=== PATIENT | male | born 1985 | race Two or more races ===

== ENCOUNTER 2024-12-21 11:10 | Emergency (ER) | payer MEDICAID, SELFPAY ==
[2024-12-21] VITALS (7 sets, daily range): BP systolic 112–145; BP diastolic 72–90; PULSE 98–118; RESP 17–20; TEMP 37.2–39.3; O2SAT 96–98; BMI 20.9
--- NOTE | 2024-12-21 12:01 | XR_ITS ---
Examination: PA lateral chest 2 views TECHNIQUE: Upright PA lateral chest 2 views Exam date and time: December 21, 2024 12:12 PM FINDINGS: Coughing difficulty breathing one month FINDINGS: Bilateral pneumonia, severe in the right upper lobe and left perihilar region Normal heart size The osseous structures are intact IMPRESSION: Significant bilateral pneumonia
[2024-12-21 12:15] LABS: Basophils % (Auto) 1 % (0-2.5); Eosinophils # (Auto) 0.1 Thou/mm3 (0.0-0.5); Eosinophils % (Auto) 1 % (0-10); Hematocrit 40.5 % (41.0-53.0); Immature Granulocytes % (Auto) 0 % (0-0); Immature Granulocytes Auto 0.01 Thou/mm3 (0.00-0.00); Lymphocytes # (Auto) 0.9 Thou/mm3 (1.0-4.8); Lymphocytes % (Auto) 12 % (10-50); Mean Corpuscular HGB Conc 34.6 g/dl (31.0-37.0); Mean Corpuscular Hemoglobin 27.8 pg (25.0-35.0); Mean Corpuscular Volume 80 fL (80-100); Monocytes # (Auto) 0.7 Thou/mm3 (0.0-0.8); Monocytes % (Auto) 10 % (0-12); Neutrophils # (Auto) 5.4 Thou/mm3 (1.8-7.7); Neutrophils % (Auto) 76 % (37-80); Nucleated Red Blood Cell % 0 /100 WBC (0); Platelet Count 315 Thou/mm3 (140-440); RDW Standard Deviation 33.9 fL (35.1-43.9); Red Blood Count 5.04 Miln/mm3 (4.50-5.90); White Blood Count 7.2 Thou/mm3 (3.8-10.6)
--- NOTE | 2024-12-21 12:21 | PD.EDRME ---
Rapid Medical Screening Exam RME Arrival date/time: 12/21/24 11:10 39-year-old male presents emergency department complaints of cough, congestion and shortness of breath ongoing x 1 month Chief Complaint: Flu Like Symptoms Time Seen by Provider: 12/21/24 11:14 Vital signs: Vital Signs Temperature 99.0 F 12/21/24 11:30 Pulse Rate 100 12/21/24 11:30 Respiratory Rate 18 12/21/24 11:30 Blood Pressure 117/82 12/21/24 11:30 Pulse Oximetry (%) 98 12/21/24 11:30 Oxygen Delivery Method Room Air 12/21/24 11:30
[2024-12-21 12:42] LABS: Quantiferon-TB* See Sep Rpt
[2024-12-21 12:46] LABS: Lactate (Lactic Acid) 1.4 mMol/L (0.4-2.0)
[2024-12-21 12:54] LABS: Alanine Aminotransferase 22 U/L (10-49); Albumin, Serum 3.4 gm/dL (3.5-5.0); Albumin/Globulin Ratio 0.8 (1.2-2.2); Alkaline Phosphatase 134 U/L (46-116); Anion Gap 7 (7-16); Aspartate Amino Transferase 29 U/L (0-34); BUN/Creatinine Ratio 13 Ratio (12-20); Bilirubin,Total 0.7 mg/dL (0.3-1.2); Blood Urea Nitrogen 8 mg/dL (9-23); Calcium (Corrected) 9.5 mg/dL (8.5-10.1); Carbon Dioxide 24.6 mMol/L (20.0-31.0); Chloride 101 mMol/L (98-107); Creatinine (Component) 0.6 mg/dL (0.6-1.3); Estimated Creatinine Clearance 118.9 mL/min (>60); Globulin 4.2 gm/dL (2.3-3.5); Osmolality,Calculated 285 (275-295); Sodium 133 mMol/L (136-145); Total Protein 7.6 gm/dL (5.7-8.2); eGFR > 60 See Note
[2024-12-21 12:59] LABS: Glucose 480 mg/dL (74-106)
[2024-12-21 13:42] LABS: Glucose Estimated Average 349 mg/dL (80-131); Hemoglobin A1C 13.8 % Hgb (4.8-6.0)
[2024-12-21 13:56] LABS: Cocci Serology, IgM Positive (Negative)
[2024-12-21 13:57] LABS: Cocid Sro, CF/ID (UCD) NO CHG* See Sep Rpt
--- NOTE | 2024-12-21 16:20 | PD.EDURI ---
Upper Respiratory Inf. RME/HPI General Chief Complaint: Flu Like Symptoms Stated Complaint: Cough X 1 month, sore throat X 15 days Time Seen by Provider: 12/21/24 11:14 Arrival date/time: 12/21/24 11:10 RME / HPI RME / HPI Narrative: 12/21/24 11:10 39-year-old male presents emergency department complaints of cough, congestion and shortness of breath ongoing x 1 month ------ Main ED Evaluation: Patient is a 39-year-old Urdu-speaking male with past medical history of type 2 diabetes who presents to the ED on 12/21/2024 due to cough with occasional blood tinged sputum, sore throat, and weight loss for the past 1 month. Patient also reports increasing fatigue over the last few days affecting his work activity. He reports associated pleuritic chest pain worsened upon inspiration and cough. Patient denies fevers but endorses occasional chills. He denies any skin rashes. He denies any abdominal pain, nausea, or vomiting. He works in the [employer]. Patient reports that he went to a clinic about 1 month ago when his symptoms started and was prescribed 3 medications including antibiotics which he completed at that time. He was told to come into the hospital if his symptoms had worsened and today he felt ill so came in. Patient does not have a regular doctor and only takes oral medications for his diabetes, which includes metformin and 1 other medication, that are from [place]. Complaint: cough and sore throat Onset (ago): month(s) Duration: constant Severity: moderate Description of mucous: bloody Able to tolerate fluids by mouth: Yes Context: other (work exposure) Associated symptoms: chills, cough, chest pain and shortness of breath Related Data Previous Rx's ?Medication ?Instructions ?Recorded fluconazole 200 mg tablet 400 mg (2 x 200 mg) PO QDAY [place] 12/21/24 Fever 1 month #60 tabs Allergies Allergy/AdvReac Type Severity Reaction Status Date / Time No Known Allergies Allergy Verified 12/21/24 12:29 Past Medical History Past Medical History Comments PMH COMMENT: Past Medical History: Type 2 diabetes diagnosed at age 8 Family History: Significant for diabetes in mother and sister Surgical History: No past surgeries Social History: Remote history of smoking casually as a teenager, denies current alcohol use, denies recreational drug use Current Medications: Metformin and one other oral diabetes medication from [place] (Source: Patient) Allergies: No known drug allergies ED Exam Narrative Physical exam: Physical Exam General: Awake and in no acute distress. Conversational and non-toxic appearing. HEENT: Normocephalic, atraumatic, mucous membranes moist. Heart: Regular rate and rhythm, no murmurs. Lungs: Clear to auscultation with no wheezing or crackles. Patient is coughing upon deep inspiration. Abdomen: Soft, nondistended, nontender, positive bowel sounds. ?No guarding or rebound tenderness. Neurologic: Alert and oriented x3, no gross neurological deficit, and patient able to move all 4 extremities. Extremities: No edema. Skin: No rash or ecchymoses. Course Quality Measures none Orders Category Date Time Status Bedside Blood Glucose NOW Care 12/21/24 16:41 Active EKG (ED ONLY) *Do not use* NOW Care 12/21/24 17:37 Active TB [Tuberculin Skin Test (PPD)] q48h Care 12/21/24 12:20 Active Diet Carbohydrate Consistent Low Diet 12/21/24 Dinner Active EKG (ED Only) Stat Exams 12/21/24 17:37 Ordered XR chest 2V Stat Exams 12/21/24 12:01 Completed A1C [Glycohemoglobin w (eAG)] Stat Lab 12/21/24 12:35 Completed Blood Culture (Lab) Stat Lab 12/21/24 12:35 Received CBC Stat Lab 12/21/24 12:06 Completed CMP [Comprehensive Metabolic Panel] Stat Lab 12/21/24 12:06 Completed Cocci Serology IgM with reflex to IgG [Cocci Serology, Lab 12/21/24 12:06 Completed Unk History] Stat Cocid Sro, CF/ID (UCD) NO CHG* Routine Lab 12/21/24 13:56 Received HIV (1&2) Antibody Rapid Stat Lab 12/21/24 12:06 Received Lactic Acid [Lactate (Lactic Acid)] Stat Lab 12/21/24 12:35 Completed Procalcitonin Stat Lab 12/21/24 12:35 Completed Quantiferon-TB* Stat Lab 12/21/24 12:35 Received Acetaminophen Tab [Tylenol ES Tab] Med 12/21/24 16:21 Discontinued 1,000 mg PO X1 ONE Fluconazole/Ns 400 mg Ivpb [Diflucan/Ns Ivpb] Med 12/21/24 17:21 Active 400 mg in 200 ml IV X1 Insulin Regular Med 12/21/24 16:40 Discontinued 5 unit SC X1 ONE Sodium Chloride 0.9% 1000 ml [Ns] 1,000 ml Med 12/21/24 16:21 Discontinued IV 999 mls/hr Tuberculin Ppd Inj [Tubersol Inj] Med 12/21/24 12:20 Discontinued 5 unit ID X1 ONE Late Tray Request Routine Oth 12/21/24 17:19 Active Vital Signs Vital signs: Vital Signs Temperature 99.0 F 12/21/24 11:30 Pulse Rate 100 12/21/24 11:30 Respiratory Rate 18 12/21/24 11:30 Blood Pressure 117/82 12/21/24 11:30 Pulse Oximetry (%) 98 12/21/24 11:30 Oxygen Delivery Method Room Air 12/21/24 11:30 Upper Respiratory Infection MDM Narrative MDM Narrative:: Patient presents with an acute to subacute chronicity of symptoms which include a cough that is occasionally productive with blood-tinged sputum, fatigue, weight loss, malaise, and pleuritic chest pain. Chest X-ray reveals an atypical pneumonia pattern with significant bilateral infiltrate, most dense in the right upper lobe. Cocci IgM test already returned positive here in the ED. The patient's vitals initially were BP 117/82, HR 100, RR 18, Temp 99.0, and O2 98% on room air. However about 4 hours later patient was noted to have a temperature of 102.7 and a sepsis alert was called at 16:14. Labs studies showed normal WBC at 7.2, normal lactic acid at 1.4, normal procalcitonin 0.20, which support diagnosis of pulmonary coccidioidomycosis. Superimposed bacterial pneumonia was considered however given the aforementioned results and the fact that patient already failed a course of outpatient antibiotics indicates that bacterial pneumonia is less likely. TB is not entirely ruled out as a diagnosis however patient does not have risk factors for TB and imaging on CXR does not appear to suggest a cavitary lesion. Other potential differentials for the patient's presentation include but are not limited to other atypical pneumonia, lobar pneumonia, pulmonary embolism, pulmonary malignancy, bronchitis/bronchiectasis, lung abscess, aspergillosis, systemic lupus erythematosis, arteriovenous malformation, vasculidities including Amos's, Churg-Jazmin, congestive heart failure. Patient was given 1L IV normal saline, 1g PO acetaminophen, 400 mg IV fluconazole, and 5 mg subQ insulin while in ED. 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 Patient was recommended to follow up at the [facility] for close follow up and management of his diabetes and Valley Fever. He was given a business card with phone number. HIV and quantiferon TB studies were sent and will need to be followed in the clinic, as well as the [facility] cocci send-out titers which have been sent. The patient was given return precautions including if he develops shortness of breath or worsening symptoms. Patient data External records reviewed:: None Clinical information provided by:: patient Social determinants that could affect healthcare access:: other (specify) Patient has the following chronic illnesses:: Type 2 diabetes How is presenting disease/condition affected by chronic disease/condition?: exacerbated by Evaluation data The following diagnostics were reviewed and interpreted by me:: lab results and radiology exam(s) Lab and/or radiology exams considered but not ordered:: Ordered Interpretation Summary: Chest X-Ray PA lateral chest 2 views FINDINGS: Bilateral pneumonia, severe in the right upper lobe and left perihilar region Normal heart size The osseous structures are intact IMPRESSION: Significant bilateral pneumonia Medications / Prescriptions Medications or Prescriptions considered but not ordered:: Given Medication administrations:: Medication Administration History Fluconazole (Diflucan/Ns Ivpb) 400 mg in 200 mls @ 100 mls/hr IV X1 ONE Stop: 12/21/24 19:20 Last Admin: 12/21/24 18:08 Dose: 100 mls/hr Documented By: RD Discontinued Medications Acetaminophen (Acetaminophen 500 Mg Tablet) 1,000 mg PO X1 ONE Stop: 12/21/24 16:22 Last Admin: 12/21/24 16:53 Dose: 1,000 mg Documented By: FRANCISCO J Sodium Chloride (Ns) 1,000 mls @ 999 mls/hr IV .Q1H1M ONE Stop: 12/21/24 17:21 Last Admin: 12/21/24 17:10 Dose: 999 mls/hr Documented By: FRANCISCO J Insulin Human Regular (Insulin Hum Regular 1 Unit/0.01 Ml (Per Unit)) 5 unit SC X1 ONE Stop: 12/21/24 16:41 Last Admin: 12/21/24 17:39 Dose: 5 unit Documented By: FRANCISCO J Co-signed By: LETICIA Tuberculin PPD (Tuberculin Ppd Inj 5 Unit/0.1 Ml Dose) 5 unit ID X1 ONE Stop: 12/21/24 12:21 Given Consultations Consultation(s) initiated? (list below): No Diagnosis Upper Respiratory Differential Diagnosis: upper respiratory infection, bronchitis and influenza Most likely diagnosis given after review of the tests above:: Coccidioidomycosis (Valley Fever), pulmonary tuberculosis (TB), bacterial pneumonia, atypical pneumonia, community acquired pneumonia, lobar pneumonia, pulmonary embolism, pulmonary malignancy, bronchitis/bronchiectasis, lung abscess, aspergillosis, systemic lupus erythematosis, arteriovenous malformation, vasculidities including Amos's, Churg-Jazmin, congestive heart failure Admission Indicated Admission indicated?: not indicated Explain why admission is indicated or not indicated:: Patient is on room air, able to take PO, able to ambulate, verbalizes understanding of close outpatient follow up plan. Admission Request Was there a request for admission?: No Disposition Plan Disposition Plan: Discharge Discharge Attestation Discharge Attestation: The patient and all family members were given an opportunity to ask questions and understood the discharge instructions. Discharge instructions specifically effects, indications for sooner follow up or return to the emergency department, and the expected course of current diagnosis. Patient condition: Stable Discharge Plan Plan Patient Disposition: HOME (Self Care) Disposition Comment: Stable for discharge home Patient condition on transfer: Stable Prescriptions/Referrals Prescriptions/Med Rec: New fluconazole 200 mg tablet 400 mg PO QDAY MDD 400 30 Days Qty: 60 2RF Referrals: No Primary/Family,Physician [Primary Care Provider] - In 1 week Problem List Clinical Impression: Acute pulmonary coccidioidomycosis, Right upper lobe pneumonia, Diabetes Patient/Caregiver Discharge Instructions Education Materials: Understanding Coccidioidomycosis Additional Instructions: You have been diagnosed with a disease called Valley Fever. This is a lung infection that is caused by a fungus that is commonly present in the [place] called coccidioides immitis. This fungus comes from the dirt and exposure to the bose and dirt can put a person at risk for this disease. Having medical conditions like diabetes can also put a person at risk for developing a more severe infection. It is important to make sure your diabetes is under good control to make sure the infection can be treated. We recommend that you see a regular doctor to help manage your diabetes and manage the Valley Fever. You can schedule an appointment with the [facility]. [address] [place] [address] Please call between the hours of 9 am - 5 pm to make an appointment. Please follow up with the doctor regarding results of a test which is sent to [facility] that shows how severe the Valley Fever is. Continue to take your regular medications for diabetes for now. Please start a new medication, fluconazole 400 mg once a day for the Valley Fever. Please seek help from the hospital if the medicine is too expensive for you. It is very important for you to continue this medication or the disease will worsen. ---- via Google Translate Se le lugo diagnosticado loco enfermedad llamada Fiebre Bailey. Se trata de loco infecci?n pulmonar causada por un hongo que se encuentra com?nmente en el [place] y se denomina coccidioides immitis. Nathan hongo proviene de la amy y la exposici?n a los sandoval y a la amy puede poner a loco persona en riesgo de contraer esta enfermedad. Tener afecciones m?dicas ezekiel diabetes tambi?n puede poner a loco persona en riesgo de desarrollar loco infecci?n m?s grave. Es importante asegurarse de que brush diabetes est? get controlada para asegurarse de que la infecci?n pueda tratarse. Le recomendamos que consulte a un m?dico de cabecera para que le ayude a controlar brush diabetes y la Fiebre Bailey. Puede programar loco chance en el [facility]. [address] [place] [address] Llame entre las 9:00 a. m. y las 5:00 p. m. para programar loco chance. Realice un seguimiento con el m?dico en relaci?n con los resultados de loco prueba que se env?a a [facility] y que muestra la gravedad de la Fiebre Bailey. Contin?e tomando raghu medicamentos habituales para la diabetes por ahora. Comience a chris un nuevo medicamento, fluconazol 400 mg loco vez al d?a para la fiebre bailey. Busque ayuda en el hospital si el medicamento es demasiado park para usted. Es muy importante que contin?e tomando nathan medicamento o la enfermedad empeorar?. Print Language: Urdu Stand Alone Forms: Patient Portal Info Letter MD Attestation Attestation I, Nico Garcia MD, have reviewed the history, exam, and assessment of the patient. I have evaluated the patient independently and agree with the plan of care documented by [ ]. All diagnostic studies were reviewed and discussed. I confirm the diagnosis as documented by the Resident. I was present during the Medical Decision Making for this patient. The patient's plan of care was created between myself and the Resident and consistent with our discussion of the patient's case. Patient is a gentleman who suggested acute cocci infection. Patient is not hypoxic he is not vomiting and seems likely good can to be treated as an outpatient per the be started on Diflucan as per the note the patient has arranged for a follow-up outpatient as he is not been compliant with his diabetes and needs more aggressive treatment for that and hopefully to minimize any risk for dissemination. Patient appeared understand the instructions and was juan follow-up in 2 days and knows return if getting worse.
[2024-12-21] MEDS: ACETAMINOPHEN 500 MG TABLET 1000 MG PO (16:53)
[2024-12-21] MEDS: SODIUM CHLORIDE 0.9% 1000 ML 1,000 ML 999 ML IV (17:10)
--- NOTE | 2024-12-21 17:37 | EKG_ITS ---
[facility] Test Date: 2024-12-21 Pat Name: KAN VALLEepartment: Room: - Gender: Male Physical Therapist Clinic Director: : [id number] Requested By: Brittney Leary Order Number: [id number] Reading MD: Brittney Leary Measurements Intervals [place] Rate: 96 P: 57 KS: 151 QRS: 46 QRSD: 89 T: 42 QT: 357 QTc: 451 Interpretive Statements SINUS RHYTHM No previous ECG available for comparison /store/S0/[id number].pdf
[2024-12-21] MEDS: INSULIN HUM REGULAR 1 UNIT/0.01 ML (PER UNIT) 5 UNIT SC (17:39)
[2024-12-21] MEDS: FLUCONAZOLE/NS 400 MG IVPB 400 MG/200 ML BAG 100 MG IV (18:08)
[2024-12-21 21:50] LABS: HIV (1&2) Antibody Rapid Non-Reactive
== END 2024-12-21 21:05 | disposition home or self-care (01) ==
PROVIDERS: Nurse Practitioner Primary Care; Student in an Organized Health Care Education/Training Program; Emergency Provider Emergency Medicine
DX: B38.0 Acute pulmonary coccidioidomycosis (principal); J18.9 Pneumonia, unspecified organism; E11.9 Type 2 diabetes mellitus without complications
CPT/HCPCS: 36415; 71046; 80053; 83036; 83605; 84145; 85025; 86480; 86635; 86703; 87040; 93005; 96361; 96365; 96366; 99284; J1450; J1815; J7030; A9270

== ENCOUNTER 2024-12-24 08:47 | Outpatient (AMB) | payer MEDICAID, SELFPAY ==
[2024-12-24 08:54] VITALS: BP 102/70; PULSE 114; RESP 16; TEMP 36.2; O2SAT 95
--- NOTE | 2024-12-24 08:54 | ACNOTE_ITS ---
Vital Signs 12/24/24 08:54 Weight 49.612 kg Weight Measurement Method Standing Scale BP 102/70 Blood Pressure Source Automatic Cuff Blood Pressure Location Left Upper Arm Position Sitting Respiration 16 Pulse 114 H Pulse Source Monitor Temp 97.2 F Temp Source Oral Pulse Oximetry (%) 95 Oxygen Delivery Method Room Air Allergies/Meds Allergies & Medications Allergies No Known Allergies Allergy (Verified 12/24/24 08:55) Medication Reconciliation fluconazole 200 mg tablet 400 mg (2 x 200 mg) PO QDAY Valley Fever 1 month #60 tabs 12/21/24 [Rx Confirmed 12/24/24] blood sugar diagnostic (Accu-Chek Guide test strips) #100 ea 12/24/24 [Rx] blood-glucose meter (Accu-Chek Guide Me Glucose Meter) #1 ea 12/24/24 [Rx] insulin glargine 100 unit/mL (3 mL) subcutaneous pen (Lantus Solostar U-100 Insulin) 10 unit (0.1 mL) subcut QPM #15 mL 12/24/24 [Rx] megestrol 800 mg/20 mL (20 mL) oral suspension 800 mg (20 mL) PO QDAY #20 mL 12/24/24 [Rx] metformin 1,000 mg tablet 1,000 mg PO BID #60 tabs 12/24/24 [Rx] MA Intake Visit Data Collection New Patient or Established: Established Patient (seen at [facility] within 3 years) Seen by Clinical Staff ONLY (RN/MA): No Pain Present Currently: No Pain scale:: 0 Pain Scale Used: Monge-Bauman/Numerical [employer] Worker Required: No PCP or OBGYN visit in last 3 months: Yes Date of Last PCP or OBGYN visit: 12/21/24 Hx Now: No Do You Feel Safe at Home: Yes Authorities Contacted: N/A Smoking Status Smoking Status: Never smoker Immunization / Flu Flu Vaccine in the Last 12 Months: No Flu Vaccine Exclusion Criteria: No Exclusion Criteria Past Medical History Past Medical History CARDIAC: Negative Congestive Heart Failure RESPIRATORY: Negative Chronic Obstructive Pulmonary Disease (COPD) GENITOURINARY: Negative Renal Disease ENDOCRINE: Negative Diabetes Mellitus Type 1 or Diabetes Mellitus Type 2 Social History SMOKING STATUS: Smoking status: Never smoker Patient Portal Questionaires PHQ-9 PHQ-2 Over the last 2 weeks, how often have you been bothered by any of the following problems? 1. Little interest or pleasure in doing things: not at all 2. Feeling down, depressed, or hopeless: not at all Total score: 0 Depression screen completed yes Social History Living Situation History Marital Status: Single Lives With: Family Tobacco History Smoking Status: Never smoker Domestic Abuse History Do You Feel Safe at Home: Yes Review of Systems Report any current symptoms Only answer those that you have currently: Past Medical History Past Medical History Have you ever been diagnosed with any of the following: Cardiology Problems Congestive Heart Failure: No Respiratory Problems Chronic Obstructive Pulmonary Disease (COPD): No Genital/Urinary Problems Renal Disease: No Endocrine Problems Diabetes Mellitus Type 1: No Diabetes Mellitus Type 2: No History of Present Illness HPI Narrative 39-year-old male with past medical history of uncontrolled diabetes who presented to the ED on 12/21/2024 due to cough with occasional blood tinged sputum, sore throat, and weight loss for the past 1 month. Patient was diagnosed with valley fever and was discharged with fluconazole and instructed to [facility]. 12/24/2024: Patient here today for follow-up for valley fever and uncontrolled diabetes, labs reviewed from the ED showing A1c of 13.8. Patient endorses not checking his sugars at home takes only metformin a 850 mg twice daily and glyburide 5 mg twice daily given to him from [place]. In addition patient also states having polyuria states going to the bathroom at least 10 times every night, likely in the setting of uncontrolled diabetes. Patient also complaining of loss of appetite and is requesting medications to help with appetite stimulation. He states improvement with cough however when he does cough still states having some mild pleuritic chest pain with inspiration and coughing. Review of Systems Review of Systems Systems Reviewed: All systems reviewed, normal except as documented Objective/Exam Narrative Physical exam: Physical Exam GENERAL: NAD, AAOx3 HEENT: Moist mucosa. Eyes open, symmetrical, & clear CARDIO: Heart RRR, no obvious murmurs PULM: +coughing, CTA B/L, no R/W/R GI: Abdomen soft, nondistended, no pain on palpation. BSx4 SKIN/MSK/EXT: No wounds/rashes/edema/amputations, no pain on palpation. Pedal pulses present B/L NEURO: AAOx3, no focal neuro deficits, able to move all 4 extremities Assessment & Plan Diagnosis / Problem List (1) Diabetes type 2, uncontrolled: Status: Acute Plan: Labs reviewed showed hemoglobin A1c of 13.8%, patient currently takes metformin 850 mg twice daily and glyburide 5 mg twice daily prescribed from [place]. As patient's hemoglobin A1c is very elevated despite current medication regimen megan l prescribe 10 units of Lantus as well as the glucose meter and strips to check fasting blood sugars, metformin dose adjusted to 1000 mg twice daily. Patient was also counseled on the importance of strict blood sugar control and lifestyle modifications. Complications of uncontrolled diabetes discussed with the patient and he states understanding. Patient was also given blood sugar log to look fasting blood sugars in order to make adjustments to insulin regimen. Will follow-up in 1 week (2) Anorexia: Status: Acute Plan: Patient states that decreased appetite with approximately 6 kg weight loss in 1 month. Will prescribe megestrol 800 mg daily (3) Acute pulmonary coccidioidomycosis: Status: Acute Plan: Patient was recently discharged from the ED with diagnosis of valley fever. Was discharged with fluconazole 400 mg daily we will continue current management at this time. HIV negative, QuantiFERON found negative as part of ED workup. will reorder QuantiFERON and will evaluate in 1 week. Office Procedures [facility] Level of Care Nursing/Assessment Patient Status: Established Patient Nursing Assessment/Reassessment: BP Monitoring, Medication Reconciliation, Update PMH in EMR and Vital Signs Coordination of Care: Complex Care and Chronic Disease 1-5, Consent,records obtained, informed consent, Education Simp Pt/Fam and Staff clarify orders Established Patient Charge Established Patient Point Assignment: 100 Established Patient Point Charge: EP Level 3 (80-115)
== END 2024-12-24 10:25 | disposition home or self-care (01) ==
LOC: HODAHC 08:47
PROVIDERS: Supervising Provider Internal Medicine; Visit Provider Student in an Organized Health Care Education/Training Program
DX: R63.0 Anorexia (principal); E11.9 Type 2 diabetes mellitus without complications; Z79.84 Long term (current) use of oral hypoglycemic drugs; Z79.4 Long term (current) use of insulin; B38.0 Acute pulmonary coccidioidomycosis
CPT/HCPCS: 99213; G0463

== ENCOUNTER 2024-12-31 09:55 | Outpatient (AMB) | payer MEDICAID, SELFPAY ==
[2024-12-31 09:54] VITALS: BP 107/75; PULSE 96; RESP 16; TEMP 35.6; O2SAT 96
--- NOTE | 2024-12-31 09:54 | ACNOTE_ITS ---
Vital Signs 12/31/24 09:54 Height 58 m Height Method Stated Weight 48.704 kg Weight Measurement Method Standing Scale BMI 0.0 BP 107/75 Blood Pressure Source Automatic Cuff Blood Pressure Location Left Upper Arm Position Sitting Respiration 16 Pulse 96 Pulse Source Monitor Temp 96.0 F L Temp Source Temporal Artery Scan Pulse Oximetry (%) 96 Oxygen Delivery Method Room Air Allergies/Meds Allergies & Medications Allergies No Known Allergies Allergy (Verified 12/31/24 10:57) Medication Reconciliation fluconazole 200 mg tablet 400 mg (2 x 200 mg) PO QDAY Valley Fever 1 month #60 tabs 12/21/24 [Rx Confirmed 12/31/24] blood sugar diagnostic (Accu-Chek Guide test strips) #100 ea 12/24/24 [Rx Confirmed 12/31/24] blood-glucose meter (Accu-Chek Guide Me Glucose Meter) #1 ea 12/24/24 [Rx Confirmed 12/31/24] insulin glargine 100 unit/mL (3 mL) subcutaneous pen (Lantus Solostar U-100 Insulin) 10 unit (0.1 mL) subcut QPM #15 mL 12/24/24 [Rx Confirmed 12/31/24] megestrol 800 mg/20 mL (20 mL) oral suspension 800 mg (20 mL) PO QDAY #20 mL 12/24/24 [Rx Confirmed 12/31/24] metformin 1,000 mg tablet 1,000 mg PO BID #60 tabs 12/24/24 [Rx Confirmed 12/31/24] dextromethorphan polistirex 30 mg/5 mL oral susp ext.release 12hr (Robitussin ER) 10 ml PO Q12H PRN cough #89 mL 12/31/24 [Rx] MA Intake Visit Data Collection New Patient or Established: Established Patient (seen at [facility] within 3 years) Seen by Clinical Staff ONLY (RN/MA): No Pain Present Currently: No Pain scale:: 0 Pain Scale Used: Kia/Numerical Psychiatric Assistant Required: No PCP or OBGYN visit in last 3 months: Yes Hx Now: No Do You Feel Safe at Home: Yes Authorities Contacted: N/A Smoking Status Smoking Status: Never smoker Immunization / Flu Flu Vaccine in the Last 12 Months: No Flu Vaccine Exclusion Criteria: No Exclusion Criteria Past Medical History Past Medical History CARDIAC: Negative Congestive Heart Failure RESPIRATORY: Negative Chronic Obstructive Pulmonary Disease (COPD) GENITOURINARY: Negative Renal Disease ENDOCRINE: Negative Diabetes Mellitus Type 1 or Diabetes Mellitus Type 2 Social History SMOKING STATUS: Smoking status: Never smoker Patient Portal Questionaires PHQ-9 PHQ-2 Over the last 2 weeks, how often have you been bothered by any of the following problems? 1. Little interest or pleasure in doing things: not at all Social History Living Situation History Lives With: Family Tobacco History Smoking Status: Never smoker Domestic Abuse History Do You Feel Safe at Home: Yes Review of Systems Report any current symptoms Only answer those that you have currently: Past Medical History Past Medical History Have you ever been diagnosed with any of the following: Cardiology Problems Congestive Heart Failure: No Respiratory Problems Chronic Obstructive Pulmonary Disease (COPD): No Genital/Urinary Problems Renal Disease: No Endocrine Problems Diabetes Mellitus Type 1: No Diabetes Mellitus Type 2: No History of Present Illness HPI Narrative 39-year-old male with past medical history of uncontrolled diabetes who presented to the ED on 12/21/2024 due to cough with occasional blood tinged sputum, sore throat, and weight loss for the past 1 month. Patient was diagnosed with valley fever and was discharged with fluconazole and instructed to follow-up in the [facility]. 12/24/2024: Patient here today for follow-up for valley fever and uncontrolled diabetes, labs reviewed from the ED showing A1c of 13.8. Patient endorses not checking his sugars at home takes only metformin a 850 mg twice daily and glyburide 5 mg twice daily given to him from [place]. In addition patient also states having polyuria states going to the bathroom at least 10 times every night, likely in the setting of uncontrolled diabetes. Patient also complaining of loss of appetite and is requesting medications to help with appetite stimulation. He states improvement with cough however when he does cough still states having some mild pleuritic chest pain with inspiration and coughing. 12/31/24: Patient seen today for follow up visit. Patient states improvement in symptoms, however continues to have coughing spells that bother him. Coughing spells get so bad he sometimes spits some minimal blood. Patient adviced to continue taking his fluconazole for valley fever. Added some robitussin for cough. Blood sugar log was reviewed found with avg fasting BS around 270-300 currently on 10 units of insulin. Increased dose to 15 units and patient was adviced to titrate by 1 units until Fasting sugars are 150-170 range. Labs were ordered last week however still not in the [facility] system. will follow up in 1 week. L Objective/Exam Narrative Physical exam: Physical Exam GENERAL: NAD, AAOx3 HEENT: Moist mucosa. Eyes open, symmetrical, & clear CARDIO: Heart RRR, no obvious murmurs PULM: No noted coughing/dyspnea CTA B/L, no R/W/R GI: Abdomen soft, nondistended, no pain on palpation. BSx4 SKIN/MSK/EXT: No wounds/rashes/edema/amputations, no pain on palpation. Pedal pulses present B/L NEURO: AAOx3, no focal neuro deficits, able to move all 4 extremities Assessment & Plan Diagnosis / Problem List (1) Coccidioidomycosis: Status: Acute Plan: Continue fluconazole (2) Diabetes type 2, uncontrolled: Status: Acute Plan: curently on 10 units of glargine, sugars have been ranging between 270-300. Increased dose to 15 units and to titrate up by 1 unit until goal of 150-170 fasting Additional Assessment Internal Medicine Attending Note: Case discussed with and agree with note and management plan of Resident Physician as per Resident's Note above. Issues of concern for present visit are as follows: Follow-up visit. Some improvement in symptoms. Continued coughing spells, occasional tinged with hemoptysis. Diabetes self-care reviewed including diet, exercise, footcare, eye care. Blood sugars continue to remain elevated. We will increase his dose of Lantus and titrate the dose upwards. We will potentially need to add mealtime insulin as well. Follow-up in 1 week. Lab results from test ordered at last visit not yet available, we will continue to check for these. Michael Marquez MD Physician Billing Established Patient Established Patient: E/M Level 3-CPT 70396 Office Procedures [facility] Level of Care Nursing/Assessment Patient Status: Established Patient Nursing Assessment/Reassessment: Medication Reconciliation, Update PMH in EMR and Vital Signs Coordination of Care: Complex Care and Chronic Disease 1-5, Consent,records obtained, informed consent, Education Simp Pt/Fam, Results/Orders obtained and Staff clarify orders Established Patient Charge Established Patient Point Assignment: 90 Established Patient Point Charge: Level 3 (80-115)
== END 2024-12-31 11:03 | disposition home or self-care (01) ==
LOC: HODAHC 09:55
PROVIDERS: PCP Student in an Organized Health Care Education/Training Program; Referring Provider Student in an Organized Health Care Education/Training Program; Supervising Provider Internal Medicine; Visit Provider Student in an Organized Health Care Education/Training Program
DX: B38.0 Acute pulmonary coccidioidomycosis (principal); E11.9 Type 2 diabetes mellitus without complications; Z79.4 Long term (current) use of insulin
CPT/HCPCS: 99213; G0463

== ENCOUNTER 2025-04-12 13:12 | Outpatient (AMB) | payer MEDICAID, SELFPAY ==
--- NOTE | 2025-04-12 14:29 | ACNOTE_ITS ---
Allergies/Meds Allergies & Medications Allergies No Known Allergies Allergy (Verified 04/21/25 08:35) Medication Reconciliation blood-glucose meter (Accu-Chek Guide Me Glucose Meter) #1 ea 12/24/24 [Rx Confirmed 12/31/24] dextromethorphan polistirex 30 mg/5 mL oral susp ext.release 12hr (Robitussin ER) 10 ml PO Q12H PRN cough #89 mL 12/31/24 [Rx] isoniazid 300 mg tablet 300 mg PO QDAY 6 months #180 tabs 01/11/25 [Rx] pyridoxine (vitamin B6) 50 mg tablet 50 mg PO QDAY 6 months #180 tabs 01/11/25 [Rx] rifampin 300 mg capsule 300 mg PO QDAY 6 months #180 caps 01/11/25 [Rx] fluconazole 200 mg tablet 400 mg (2 x 200 mg) PO QDAY Valley Fever 1 month #60 tabs 03/17/25 [Rx] blood sugar diagnostic (Accu-Chek Guide test strips) #100 ea 04/12/25 [Rx Confirmed 04/21/25] blood-glucose sensor (PostedInyle Lisa 3 Plus Sensor device) #1 ea 04/12/25 [Rx Confirmed 04/21/25] insulin glargine 100 unit/mL (3 mL) subcutaneous pen (Lantus Solostar U-100 Insulin) 25 unit (0.25 mL) subcut QPM #15 mL 04/12/25 [Rx Confirmed 04/21/25] lancets 30 gauge #100 ea 04/12/25 [Rx Confirmed 04/21/25] megestrol 800 mg/20 mL (20 mL) oral suspension 800 mg (20 mL) PO QDAY #20 mL 04/12/25 [Rx Confirmed 04/21/25] metformin 1,000 mg tablet 1,000 mg PO BID #60 tabs 04/12/25 [Rx Confirmed 04/21/25] pen needle, diabetic 32 gauge x 5/32 (1st Tier Unifine Pentips Plus) #100 ea 04/12/25 [Rx Confirmed 04/21/25] MA Intake Visit Data Collection New Patient or Established: Established Patient (seen at [facility] within 3 years) Seen by Clinical Staff ONLY (RN/SORAYA): No Pain Present Currently: No Pain scale:: 0 Pain Scale Used: Monge-Bauman/Numerical Cushion Builder Required: No PCP or OBGYN visit in last 3 months: Yes Hx Now: No Do You Feel Safe at Home: Yes Authorities Contacted: N/A Smoking Status Smoking Status: Never smoker Immunization / Flu Flu Vaccine in the Last 12 Months: Yes Flu Vaccine Exclusion Criteria: Already Received Past Medical History Past Medical History CARDIAC: Negative Congestive Heart Failure RESPIRATORY: Negative Chronic Obstructive Pulmonary Disease (COPD) GENITOURINARY: Negative Renal Disease ENDOCRINE: Negative Diabetes Mellitus Type 1 or Diabetes Mellitus Type 2 Social History SMOKING STATUS: Smoking status: Never smoker Patient Portal Questionaires PHQ-9 PHQ-2 Over the last 2 weeks, how often have you been bothered by any of the following problems? 1. Little interest or pleasure in doing things: not at all Social History Living Situation History Lives With: Family Tobacco History Smoking Status: Never smoker Domestic Abuse History Do You Feel Safe at Home: Yes Review of Systems Report any current symptoms Only answer those that you have currently: Past Medical History Past Medical History Have you ever been diagnosed with any of the following: Cardiology Problems Congestive Heart Failure: No Respiratory Problems Chronic Obstructive Pulmonary Disease (COPD): No Genital/Urinary Problems Renal Disease: No Endocrine Problems Diabetes Mellitus Type 1: No Diabetes Mellitus Type 2: No History of Present Illness HPI Narrative 39-year-old male with past medical history of uncontrolled diabetes who presented to the ED on 12/21/2024 due to cough with occasional blood tinged sputum, sore throat, and weight loss for the past 1 month. Patient was diagnosed with valley fever and was discharged with fluconazole and instructed to follow-up in the [facility]. 12/24/2024: Patient here today for follow-up for valley fever and uncontrolled diabetes, labs reviewed from the ED showing A1c of 13.8. Patient endorses not checking his sugars at home takes only metformin a 850 mg twice daily and glyburide 5 mg twice daily given to him from [place]. In addition patient also states having polyuria states going to the bathroom at least 10 times every night, likely in the setting of uncontrolled diabetes. Patient also complaining of loss of appetite and is requesting medications to help with appetite stimulation. He states improvement with cough however when he does cough still states having some mild pleuritic chest pain with inspiration and coughing. 12/31/24: Patient seen today for follow up visit. Patient states improvement in symptoms, however continues to have coughing spells that bother him. Coughing spells get so bad he sometimes spits some minimal blood. Patient adviced to continue taking his fluconazole for valley fever. Added some robitussin for cough. Blood sugar log was reviewed found with avg fasting BS around 270-300 currently on 10 units of insulin. Increased dose to 15 units and patient was adviced to titrate by 1 units until Fasting sugars are 150-170 range. Labs were ordered last week however still not in the [facility] system. will follow up in 1 week. L 04/12/2025 patient came for follow-up visit. He reported that his symptoms have been improving when he does gets mild hemoptysis when he has a bad cough. 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 He was advised to continue his fluconazole for valley fever. He reported that he is only able to check his blood sugars during the morning time which was around 300-400 mg/dL on 18 units insulin. He denied any symptoms of chest pain, shortness of breath, dysuria or any other symptom. He was advised to increase his insulin 25 units and add up 2 units every day until his blood sugars are below 200 mg/dL in the morning with goal 150?170. He was additionally given prescription refill for Lantus, lancets, insulin needles and freestyle lisa 3 was sent as patient is currently using insulin for better management of blood sugar. He was also given megestrol prescription for appetite stimulation. CMP was ordered to evaluate for kidney functions as patient is currently taking metformin and urine microalbumin with creatinine was ordered to evaluate for proteinuria. Follow-up in a month. Review of Systems Review of Systems Systems Reviewed: All systems reviewed, normal except as documented Objective/Exam Narrative Physical exam: GENERAL APPEARANCE: AxOx4, lean appearing male in no acute distress. HEENT: NC, AT. MMM. EOMI, clear conjunctiva, oropharynx clear. NECK: Supple without lymphadenopathy. No stiffness or restricted ROM. HEART: Regular rate and regular rhythm, normal S1/S2, no m/r/g LUNGS: CTAB, moving air well. No crackles or wheezes are heard. ABDOMEN: Soft, nontender, nondistended with good bowel sounds heard. BACK: No CVAT, no obvious deformity. EXTREMITIES: Without cyanosis, clubbing or edema. NEUROLOGICAL: Grossly nonfocal. Alert and oriented, moving all 4 extremities. CN not formally tested but appear grossly intact. Observed to ambulate with normal gait. Skin: Warm and dry without any rash. Psych: Appropriate mood and affect Assessment & Plan Diagnosis / Problem List (1) Diabetes type 2, uncontrolled: Status: Acute Assessment & Plan: ? Patient is currently using insulin 18 units and metformin 1 g twice daily. He reported to have his blood sugars around 300-400 in the morning. Plan: ? Patient was advised to increase in insulin units 25 units at night and incre ase to 2 units every day until his blood sugars are below 200 mg/dL. Goal of morning/fasting blood sugar around 150-170 mg/dL. ? Prescription refill was given for Lantus, lancets, test strips ?Freestyle lisa 3 was ordered as patient is currently using insulin therapy besides metformin ?CMP and urine microalbumin with creatinine was ordered to evaluate for proteinuria and kidney functions ?Follow-up in a month (2) Coccidioidomycosis: Status: Acute Assessment & Plan: ? Patient is currently taking fluconazole for valley fever Plan: ? Recommended to continue taking fluconazole ? Recommended to take cough syrup as needed as patient continues to have mild hemoptysis Plan of care discussed with attending physician, Dr.Watanakunakorn Dr. Teo MD, PGY 2 Orders: Orders Comprehensive Metabolic Panel 04/12/25 Microalbumin, Ur Rnd w Creat 04/12/25 Office Procedures [facility] Level of Care Nursing/Assessment Patient Status: Established Patient Nursing Assessment/Reassessment: Medication Reconciliation, Update PMH in EMR and Vital Signs Coordination of Care: Complex Care and Chronic Disease 1-5, Consent,records obtained, informed consent, Education Simp Pt/Fam and Staff clarify orders Established Patient Charge Established Patient Point Assignment: 85 Established Patient Point Charge: EP Level 3 (80-115)
== END 2025-04-12 14:39 | disposition home or self-care (01) ==
LOC: HODAHC 13:12
PROVIDERS: PCP Student in an Organized Health Care Education/Training Program; Referring Provider Student in an Organized Health Care Education/Training Program; Supervising Provider Internal Medicine; Visit Provider Student in an Organized Health Care Education/Training Program
DX: B38.0 Acute pulmonary coccidioidomycosis (principal); E11.9 Type 2 diabetes mellitus without complications; Z79.4 Long term (current) use of insulin
CPT/HCPCS: 99213; G0463

== ENCOUNTER 2025-05-13 15:14 | Outpatient (AMB) | payer MEDICAID, SELFPAY ==
[2025-05-13 15:29] VITALS: BP 99/65; PULSE 90; RESP 17; TEMP 36.8; O2SAT 95
--- NOTE | 2025-05-13 15:29 | PD.RESCLINIC ---
Vital Signs 05/13/25 15:29 Height 58 m Height Method Measured Weight 51.369 kg Weight Measurement Method Standing Scale BMI 0.0 BP 99/65 Blood Pressure Source Automatic Cuff Blood Pressure Location Right Upper Arm Position Sitting Respiration 17 Pulse 90 Pulse Source Monitor Temp 98.3 F Temp Source Temporal Artery Scan Pulse Oximetry (%) 95 Oxygen Delivery Method Room Air Allergies/Meds Allergies & Medications Allergies No Known Allergies Allergy (Verified 05/13/25 15:30) Medication Reconciliation blood-glucose meter (Accu-Chek Guide Me Glucose Meter) #1 ea 12/24/24 [Rx Confirmed 05/13/25] dextromethorphan polistirex 30 mg/5 mL oral susp ext.release 12hr (Robitussin ER) 10 ml PO Q12H PRN cough #89 mL 12/31/24 [Rx Confirmed 05/13/25] isoniazid 300 mg tablet 300 mg PO QDAY 6 months #180 tabs 01/11/25 [Rx Confirmed 05/13/25] pyridoxine (vitamin B6) 50 mg tablet 50 mg PO QDAY 6 months #180 tabs 01/11/25 [Rx Confirmed 05/13/25] rifampin 300 mg capsule 300 mg PO QDAY 6 months #180 caps 01/11/25 [Rx Confirmed 05/13/25] fluconazole 200 mg tablet 400 mg (2 x 200 mg) PO QDAY Valley Fever 1 month #60 tabs 03/17/25 [Rx Confirmed 05/13/25] blood sugar diagnostic (Accu-Chek Guide test strips) #100 ea 04/12/25 [Rx Confirmed 05/13/25] blood-glucose sensor (FreeStyle Lisa 3 Plus Sensor device) #1 ea 04/12/25 [Rx Confirmed 05/13/25] lancets 30 gauge #100 ea 04/12/25 [Rx Confirmed 05/13/25] megestrol 800 mg/20 mL (20 mL) oral suspension 800 mg (20 mL) PO QDAY #20 mL 04/12/25 [Rx Confirmed 05/13/25] metformin 1,000 mg tablet 1,000 mg PO BID #60 tabs 04/12/25 [Rx Confirmed 05/13/25] pen needle, diabetic 32 gauge x /32 (1st Tier Unifine Pentips Plus) #100 ea 06/10/25 [Rx Confirmed 05/13/25] insulin glargine 100 unit/mL (3 mL) subcutaneous pen (Lantus Solostar U-100 Insulin) 40 unit (0.4 mL) subcut QPM Diabetes Mellitus #15 mL 05/13/25 [Rx] semaglutide 3 mg tablet (Rybelsus) 3 mg PO QDAY 1 month #30 tabs 05/13/25 [Rx] MA Intake Visit Data Collection New Patient or Established: Established Patient (seen at [facility] within 3 years) Seen by Clinical Staff ONLY (RN/MA): No Reason for Visit:: 1 MONTH FOLLOW UP Pain Present Currently: No Pain scale:: 0 Pain Scale Used: Monge-Bauman/Numerical PCP or OBGYN visit in last 3 months: Yes Smoking Status Smoking Status: Never smoker Immunization / Flu Flu Vaccine in the Last 12 Months: No Flu Vaccine Exclusion Criteria: Refused by Patient Past Medical History Past Medical History CARDIAC: Negative Congestive Heart Failure RESPIRATORY: Negative Chronic Obstructive Pulmonary Disease (COPD) GENITOURINARY: Negative Renal Disease ENDOCRINE: Negative Diabetes Mellitus Type 1 or Diabetes Mellitus Type 2 Social History SMOKING STATUS: Smoking status: Never smoker Patient Portal Questionaires PHQ-9 PHQ-2 Over the last 2 weeks, how often have you been bothered by any of the following problems? 1. Little interest or pleasure in doing things: not at all Social History Living Situation History Lives With: Family Tobacco History Smoking Status: Never smoker Review of Systems Report any current symptoms Only answer those that you have currently: Past Medical History Past Medical History Have you ever been diagnosed with any of the following: Cardiology Problems Congestive Heart Failure: No Respiratory Problems Chronic Obstructive Pulmonary Disease (COPD): No Genital/Urinary Problems Renal Disease: No Endocrine Problems Diabetes Mellitus Type 1: No Diabetes Mellitus Type 2: No History of Present Illness HPI Narrative 39-year-old male with past medical history of Diabetes Mellitus Type II, Insulin Dependent who presented to the ED on 12/21/2024 due to cough with occasional blood tinged sputum, sore throat, and weight loss for the past 1 month. Patient was diagnosed with valley fever and was discharged with fluconazole and instructed to follow-up in the [facility]. 12/24/2024: Patient here today for follow-up for valley fever and uncontrolled diabetes, labs reviewed from the ED showing A1c of 13.8. Patient endorses not checking his sugars at home takes only metformin a 850 mg twice daily and glyburide 5 mg twice daily given to him from [place]. In addition patient also states having polyuria states going to the bathroom at least 10 times every night, likely in the setting of uncontrolled diabetes. Patient also complaining of loss of appetite and is requesting medications to help with appetite stimulation. He states improvement with cough however when he does cough still states having some mild pleuritic chest pain with inspiration and coughing. 12/31/24: Patient seen today for follow up visit. Patient states improvement in symptoms, however continues to have coughing spells that bother him. Coughing spells get so bad he sometimes spits some minimal blood. Patient adviced to continue taking his fluconazole for valley fever. Added some robitussin for cough. Blood sugar log was reviewed found with avg fasting BS around 270-300 currently on 10 units of insulin. Increased dose to 15 units and patient was adviced to titrate by 1 units until Fasting sugars are 150-170 range. Labs were ordered last week however [facility]. will follow up in 1 week. L 04/12/2025 patient came for follow-up visit. He reported that his symptoms have been improving when he does gets mild hemoptysis when he has a bad cough. 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 He was advised to continue his fluconazole for valley fever. He reported that he is only able to check his blood sugars during the morning time which was around 300-400 mg/dL on 18 units insulin. He denied any symptoms of chest pain, shortness of breath, dysuria or any other symptom. He was advised to increase his insulin 25 units and add up 2 units every day until his blood sugars are below 200 mg/dL in the morning with goal 150?170. He was additionally given prescription refill for Lantus, lancets, insulin needles and freestyle lisa 3 was sent as patient is currently using insulin for better management of blood sugar. He was also given megestrol prescription for appetite stimulation. CMP was ordered to evaluate for kidney functions as patient is currently taking metformin and urine microalbumin with creatinine was ordered to evaluate for proteinuria. Follow-up in a month. 05/13/2025: Patient continues to take all his medication as prescribed. Patient is currently following [facility]. Patient stated he was recently diagnosised with Tuberculosis and started of Pyridoxine 50 gm once daily and Rifampin 300 mg once daily, no RIPE treatment noted. No sputum culture on file. Patient likely being treated for latent TB given Rifampin but Pyridoxine (B6) also noted which would be in combination to Isoniazid. In addition to likely latent TB, [facility] sent positive Nocardia Culture results. Treatment for Nocardia would be Trimethoprim-Sulfamethoxazole. Holding off on treatment, need to follow up with [facility] recommendations to confirm latent TB and confirm Nocardia diagnosis. Although rare there can be cross-reactivity with positive Quantiferon TB Gold positive results. Although tested negative for HIV in Dec 2024, it is recommended that patient repeat HIV results. Continue Fluconazole for an additional month to complete 6 month course. Three diagnosis of Cocci, TB, and Nocardia would be unusual and needs further follow up with [facility]. May require ID specialist. Patient's diabetes continues to be elevated repeat A1c from 05/05/2025 noted A1c >15%. Patient brought in recorded fasting glucose at home, noted mid 300s to 400s. Currently taking 32 units of insulin glargine. 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 Increase insulin to 40 units Glargine HS. Rybelsus added, starting at 3 mg qday. Follow up with A1c. 1 month follow up. Follow up with [facility] on Friday. Review of Systems Review of Systems Narrative Review of Systems: General appearance: NO weight change, NO fatigue, NO weakness, NO fever, NO chills, NO night sweats, No cough Skin: NO rash, NO itching, NO sores, NO moles HEENT: NO Trauma, NO nausea, NO vomiting, NO visual changes, NO blurry vision, NO double vision, NO tinnitus, NO vertigo, NO ear discharge, NO rhinorrhea, NO stuffiness, NO sneezing, NO allergy, NO epistaxis. NO Hoarseness, NO sore throat, NO swollen neck. Cardiac: NO Palpitations, NO dyspnea on exertion, NO orthopnea, NO paroxysmal nocturnal dyspnea, NO edema Respiratory: NO Shortness of Breath, NO Wheezing, NO Cough, NO Sputum, NO hemoptysis GI:NO appetite, NO nausea, NO vomiting, NO dysphagia, NO changes in bowel frequency, NO stool color, NO diarrhea, NO constipation, NO hemetemesis, NO hemorrhoids, NO melena, NO hematechezia, NO abdominal pain, NO jaundice Renal: NO frequency, NO hesitancy, NO urgency, NO hematuria, NO nocturia, NO incontinence MSK: NO muscle weakness, NO gout, NO arthritis, NO muscle stiffness Neuro: NO headaches, NO tremors, NO weakness, NO paralysis, NO seizures, NO loss of consciousness, NO numbness. Hem: NO anemia, NO easy bruising/bleeding, NO petechiae, NO purpura Endo: NO heat/cold intolerance, NO excessive sweating, NO polyuria, NO polydipsia, NO polyphagia, NO thyroid problems, NO diabetes Pysch: NO mood, NO anxiety, NO depression Objective/Exam Narrative Physical exam: Vitals: 99/65, HR 90, RR 17 General Appearance: Alert and Orientated x3, thin male who is sitting on exam room in no acute distress. Thorax/Lungs: Symmetrical with good expansion. Chest and back non-tender. Lungs resonant to percussion. Breath sounds vesicular without crackles, wheezes, or rhonchi Cardiovascular/Peripheral Vascular: No jugular venous distention noted. S1 and S2 heart sounds regular, no murmurs or extra heart sounds auscultated. No peripheral edema noted. Abdomen: Bowel sounds are active. No tenderness to deep or light palpation. Assessment & Plan Diagnosis / Problem List (1) Tuberculosis: Status: Acute Assessment & Plan: Concerning diagnosis of Tuberculosis. This is likely Latent TB as patient was not started on RIPE treatment. Patient only has positive Quantiferon Gold (12/28/2024) results. No sputum culture on file. Plan: -Continue Rifampin 50 units and Pyridoxine (B6), ?unclear if Isoniazid onboard -Contact [facility] office (2) Coccidioidomycosis: Status: Acute Assessment & Plan: Continue Fluconazole Treatment for valley fever. Patient is reaching 6 month cut off and will need to stop Fluconazole next month. Plan: -Continue Fluconazole 400 mg once daily, month 5 (3) Nocardial pneumonia: Status: Acute Assessment & Plan: Positive cultures for Nocardia from [facility]. Given diagnosis of cocci and new diagnosis of TB, will hold off starting Trimethoprim-Sulfamethoxazole. Reach out to [facility] public health to determine cross reactivity, as three pulmonary disease would be concerning for HIV or immuno-deficiency. Plan: -HOLD off TRimethoprim-Sulfamethoxazole -Follow up with [facility] given suspicious results (4) Anorexia: Status: Acute Assessment & Plan: Patient has had recent weight loss greater than 20 lbs. Patient has been diagnosed with Cocci/Valley Fever, recently started on TB treatment, and possible positive for Nocardia given report from [facility]. REPEAT HIV test given concern for 3 different pulmonary infections, previous HIV test negative. Plan: -Lab oumar, repeat HIV test (5) Diabetes mellitus, type II, insulin dependent: Status: Acute Assessment & Plan: Patient has uncontrolled diabetes mellitus type II insulin dependent. Patient fasting glucose between mid 300s-400s despite taking Glargine between 29-32 units. Patient also continues to take metfomrin 1000 mg BID. 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 Patient would benefit from Rybelsus. Plan: -Glargine increased to 40 units HS -Rybelusus 3 mg qday -Continue Metformin 1000BID -continue to monitor fasting glucose at home -Follow up A1c. -Follow up visit in 1 month Plan - The patient's plan was discussed with attending Dr. Vaughn Montes MD PGY2 Internal Medicine Additional Assessment Attending note: I, Michael Marquez MD, attest that I was physically present for the lerma portions of the service completed via telehealth, and I reviewed and discussed the case with the resident and agree with the resident's plans of care as documented above. Michael Marquez MD Physician Billing Established Patient Established Patient: E/M Level 3-CPT 80026 Office Procedures [facility] Level of Care Nursing/Assessment Patient Status: Established Patient Nursing Assessment/Reassessment: Medication Reconciliation, Update PMH in EMR and Vital Signs Coordination of Care: Complex Care and Chronic Disease 1-5, Education Complex Pt/Fam, Consent,records obtained, informed consent and 4+ Authorizations needed Established Patient Charge Established Patient Point Assignment: 105 Established Patient Point Charge: Level 3 (80-115)
== END 2025-05-13 17:35 | disposition home or self-care (01) ==
PROVIDERS: Supervising Provider Student in an Organized Health Care Education/Training Program
DX: A15.9 Respiratory tuberculosis unspecified (principal); B38.9 Coccidioidomycosis, unspecified; A43.0 Pulmonary nocardiosis; R63.0 Anorexia; E11.9 Type 2 diabetes mellitus without complications; Z79.4 Long term (current) use of insulin; Z79.84 Long term (current) use of oral hypoglycemic drugs
CPT/HCPCS: 99213; G0463

== ENCOUNTER 2025-07-22 13:49 | Outpatient (AMB) | payer MEDICAID, SELFPAY ==
--- NOTE | 2025-07-22 14:03 | ACNOTE_ITS ---
<Statement entered by Sage Sarabia MD - 07/27/25 14:38> Attending note: I, Sage Sarabia MD, attest that I was physically present for the lerma portions of the service and evaluated the patient with the resident and I reviewed and discussed the case with the resident and agree with the resident's findings and plans of care as documented above. Vital Signs 07/22/25 14:04 Height 58 m Height Method Stated Weight 52.39 kg Weight Measurement Method Standing Scale BMI 0.0 BP 112/74 Blood Pressure Source Automatic Cuff Blood Pressure Location Right Upper Arm Position Sitting Respiration 18 Pulse 69 Pulse Source Monitor Temp 98.1 F Temp Source Oral Pulse Oximetry (%) 98 Oxygen Delivery Method Room Air Allergies/Meds Allergies & Medications Allergies No Known Allergies Allergy (Verified 07/22/25 14:04) Medication Reconciliation blood-glucose meter (Accu-Chek Guide Me Glucose Meter) #1 ea 12/24/24 [Rx Confirmed 07/22/25] dextromethorphan polistirex 30 mg/5 mL oral susp ext.release 12hr (Robitussin ER) 10 ml PO Q12H PRN cough #89 mL 12/31/24 [Rx Confirmed 07/22/25] fluconazole 200 mg tablet 400 mg (2 x 200 mg) PO QDAY Valley Fever 1 month #60 tabs 03/17/25 [Rx Confirmed 07/22/25] blood sugar diagnostic (Accu-Chek Guide test strips) #100 ea 04/12/25 [Rx Confirmed 07/22/25] blood-glucose sensor (FreeStyle Lisa 3 Plus Sensor device) #1 ea 04/12/25 [Rx Confirmed 07/22/25] lancets 30 gauge #100 ea 04/12/25 [Rx Confirmed 07/22/25] megestrol 800 mg/20 mL (20 mL) oral suspension 800 mg (20 mL) PO QDAY #20 mL 04/12/25 [Rx Confirmed 07/22/25] metformin 1,000 mg tablet 1,000 mg PO BID #60 tabs 04/12/25 [Rx Confirmed 07/22/25] pen needle, diabetic 32 gauge x 5/32 (1st Tier Unifine Pentips Plus) #100 ea 04/12/25 [Rx Confirmed 07/22/25] insulin glargine 100 unit/mL (3 mL) subcutaneous pen (Lantus Solostar U-100 Insulin) 40 unit (0.4 mL) subcut QPM Diabetes Mellitus #15 mL 05/13/25 [Rx Confirmed 07/22/25] semaglutide 3 mg tablet (Rybelsus) 3 mg PO QDAY 1 month #30 tabs 07/22/25 [Rx] MA Intake Visit Data Collection New Patient or Established: Established Patient (seen at [facility] within 3 years) PCP or OBGYN visit in last 3 months: Yes Smoking Status Smoking Status: Never smoker Immunization / Flu Flu Vaccine in the Last 12 Months: No Flu Vaccine Exclusion Criteria: No Exclusion Criteria Past Medical History Past Medical History CARDIAC: Negative Congestive Heart Failure RESPIRATORY: Negative Chronic Obstructive Pulmonary Disease (COPD) GENITOURINARY: Negative Renal Disease ENDOCRINE: Negative Diabetes Mellitus Type 1 or Diabetes Mellitus Type 2 Social History SMOKING STATUS: Smoking status: Never smoker Patient Portal Questionaires PHQ-9 PHQ-2 Over the last 2 weeks, how often have you been bothered by any of the following problems? 1. Little interest or pleasure in doing things: not at all Social History Living Situation History Lives With: Family Tobacco History Smoking Status: Never smoker Review of Systems Report any current symptoms Only answer those that you have currently: Past Medical History Past Medical History Have you ever been diagnosed with any of the following: Cardiology Problems Congestive Heart Failure: No Respiratory Problems Chronic Obstructive Pulmonary Disease (COPD): No Genital/Urinary Problems Renal Disease: No Endocrine Problems Diabetes Mellitus Type 1: No Diabetes Mellitus Type 2: No History of Present Illness HPI Narrative 39-year-old male with past medical history of Diabetes Mellitus Type II, Insulin Dependent who presented to the ED on 12/21/2024 due to cough with occasional blood tinged sputum, sore throat, and weight loss for the past 1 month. Patient was diagnosed with valley fever and was discharged with fluconazole and instructed to follow-up in the [facility]. 12/24/2024: Patient here today for follow-up for valley fever and uncontrolled diabetes, labs reviewed from the ED showing A1c of 13.8. Patient endorses not checking his sugars at home takes only metformin a 850 mg twice daily and glyburide 5 mg twice daily given to him from [place]. In addition patient also states having polyuria states going to the bathroom at least 10 times every nig ht, likely in the setting of uncontrolled diabetes. Patient also complaining of loss of appetite and is requesting medications to help with appetite stimulation. He states improvement with cough however when he does cough still states having some mild pleuritic chest pain with inspiration and coughing. 12/31/24: Patient seen today for follow up visit. Patient states improvement in symptoms, however continues to have coughing spells that bother him. Coughing spells get so bad he sometimes spits some minimal blood. Patient adviced to continue taking his fluconazole for valley fever. Added some robitussin for cough. Blood sugar log was reviewed found with avg fasting BS around 270-300 currently on 10 units of insulin. Increased dose to 15 units and patient was adviced to titrate by 1 units until Fasting sugars are 150-170 range. Labs were ordered last week however still not in the [facility] system. will follow up in 1 week. L 04/12/2025 patient came for follow-up visit. He reported that his symptoms have been improving when he does gets mild hemoptysis when he has a bad cough. 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 He was advised to continue his fluconazole for valley fever. He reported that he is only able to check his blood sugars during the morning time which was around 300-400 mg/dL on 18 units insulin. He denied any symptoms of chest pain, shortness of breath, dysuria or any other symptom. He was advised to increase his insulin 25 units and add up 2 units every day until his blood sugars are below 200 mg/dL in the morning with goal 150?170. He was additionally given prescription refill for Lantus, lancets, insulin needles and freestyle lisa 3 was sent as patient is currently using insulin for better management of blood sugar. He was also given megestrol prescription for appetite stimulation. CMP was ordered to evaluate for kidney functions as patient is currently taking metformin and urine microalbumin with creatinine was ordered to evaluate for proteinuria. Follow-up in a month. 05/13/2025: Patient continues to take all his medication as prescribed. Patient is currently following [facility]. Patient stated he was recently diagnosised with Tuberculosis and started of Pyridoxine 50 gm once daily and Rifampin 300 mg once daily, no RIPE treatment noted. No sputum culture on file. Patient likely being treated for latent TB given Rifampin but Pyridoxine (B6) also noted which would be in combination to Isoniazid. In addition to likely latent TB, [facility] sent positive Nocardia Culture results. Treatment for Nocardia would be Trimethoprim-Sulfamethoxazole. Holding off on treatment, need to follow up with [facility] recommendations to confirm latent TB and confirm Nocardia diagnosis. Although rare there can be cross-reactivity with positive Quantiferon TB Gold positive results. Although tested negative for HIV in Dec 2024, it is recommended that patient repeat HIV results. Continue Fluconazole for an additional month to complete 6 month course. Three diagnosis of Cocci, TB, and Nocardia would be unusual and needs further follow up with [facility]. May require ID specialist. Patient's diabetes continues to be elevated repeat A1c from 05/05/2025 noted A1c >15%. Patient brought in recorded fasting glucose at home, noted mid 300s to 400s. Currently taking 32 units of insulin glargine. 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 Increase insulin to 40 units Glargine HS. Rybelsus added, starting at 3 mg qday. Follow up with A1c. 1 month follow up. Follow up with [facility] on Friday. 07/22/2025: The patient presented for follow-up. He reported he has been following up with [facility] for his latent tuberculosis, coccidiomycosis and nocardia infection. However, he mentioned that, he is still had some hemoptysis. He denied any headache, nausea or vomiting, chest pain, SOB, abdominal pain, any changes in bowel or bladder habit, fever or chills, leg swelling. Labs were ordered for CBC, CMP, lipid panel, and urinalysis. Follow-up in 2 weeks. Recent labs done on 06/06/2025 revealed A1c of 15.2, and HIV test were negative. Review of Systems Review of Systems Systems Reviewed: All systems reviewed, normal except as documented Objective/Exam Narrative Physical exam: General: No acute distress, Alert and Oriented x 3 HEENT: Moist mucous membranes, oropharynx clear Neck: Supple, No masses, No JVD CVS: S1S2 Regular rate and rhythm, No murmurs, rubs or gallops Lungs: Clear to auscultation with no accessory use, no wheeze no rhonchi Abd: Soft, NT/ND, +BS, no organomegaly Ext: No edema, warm and well perfused Skin: No rash Psych: Appropriate mood and affect Assessment & Plan Diagnosis / Problem List (1) Diabetes mellitus, type II, insulin dependent: Status: Acute Assessment & Plan: Patient has uncontrolled diabetes mellitus type II insulin dependent. Has not been able to monitor his blood sugar recently because of busy schedule. Patient also continues to take metfomrin 1000 mg BID. 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 Patient was prescribed Rybelsus, but has not refilled it. Labs revealed A1c on 06/06/2025 was 15.2. Plan: -Monitor fasting blood sugar daily at home, and maintain a log -Glargine increased to 40 units HS -Rybelusus 3 mg qday -Continue Metformin 1000BID -Ordered CBC, CMP, lipid panel, urinalysis - Will consider ARIN inhibitor or ARB after kidney function is evaluated -Follow up visit in 2 weeks. (2) Tuberculosis: Status: Acute Assessment & Plan: Concerning diagnosis of Tuberculosis. This is likely Latent TB as patient was not started on RIPE treatment. Patient only has positive Quantiferon Gold (12/28/2024) results. No sputum culture on file. Plan: -Continue Rifampin 50 units and Pyridoxine (B6), ?unclear if Isoniazid onboard - Following up with [facility] office, and was told to be noninfectious at this point (3) Coccidioidomycosis: Status: Acute Assessment & Plan: Total 6 months of fluconazole was given. Plan: - May consider coccidiomycosis IgG titer in next follow-up if continues to have hemoptysis (4) Nocardial pneumonia: Status: Acute Assessment & Plan: Positive cultures for Nocardia from [facility]. Given diagnosis of cocci and new diagnosis of TB, will hold off starting Trimethoprim-Sulfamethoxazole. Reach out to [facility] public health to determine cross reactivity, as three pulmonary disease would be concerning for HIV or immuno-deficiency. Plan: - Medications being given by [facility] as per patient, recommended to bring medications in next visit -Follow up with [facility] given suspicious results (5) Anorexia: Status: Acute Assessment & Plan: Patient has had recent weight loss greater than 20 lbs. Patient has been diagnosed with Cocci/Valley Fever, recently started on TB treatment, and p ossible positive for Nocardia given report from [facility]. REPEAT HIV test given concern for 3 different pulmonary infections, previous HIV test negative. Plan: -Lab oumar, repeat HIV test was negative, likely weight loss and multiple infections are due to immunocompromise state secondary to uncontrolled diabetes mellitus Plan - The patient's plan was discussed with attending MD Sher Villarreal MD PGY3 Internal Medicine Office Procedures [facility] Level of Care Nursing/Assessment Patient Status: Established Patient Nursing Assessment/Reassessment: Medication Reconciliation, Update PMH in EMR and Vital Signs Coordination of Care: Complex Care and Chronic Disease 1-5, Education Complex Pt/Fam and Staff clarify orders Established Patient Charge Established Patient Point Assignment: 85 Established Patient Point Charge: EP Level 3 (80-115)
[2025-07-22 14:04] VITALS: BP 112/74; PULSE 69; RESP 18; TEMP 36.7; O2SAT 98
== END 2025-07-22 14:35 | disposition home or self-care (01) ==
LOC: HODAHC 13:49
PROVIDERS: Supervising Provider Internal Medicine; Visit Provider Student in an Organized Health Care Education/Training Program
DX: E11.9 Type 2 diabetes mellitus without complications (principal); Z79.4 Long term (current) use of insulin; Z79.84 Long term (current) use of oral hypoglycemic drugs; Z22.7 Latent tuberculosis; B38.9 Coccidioidomycosis, unspecified; R63.0 Anorexia; A43.0 Pulmonary nocardiosis
CPT/HCPCS: 99213; G0463

== ENCOUNTER 2025-08-12 13:03 | Outpatient (AMB) | payer MEDICAID, SELFPAY ==
--- NOTE | 2025-08-12 13:34 | ACNOTE_ITS ---
Vital Signs 08/12/25 13:35 Height 58 m Height Method Stated Weight 55.055 kg Weight Measurement Method Standing Scale BMI 0.0 BP 105/69 Blood Pressure Source Automatic Cuff Blood Pressure Location Right Upper Arm Position Sitting Respiration 18 Pulse 94 Pulse Source Monitor Temp 96.7 F L Temp Source Temporal Artery Scan Pulse Oximetry (%) 96 Oxygen Delivery Method Room Air Allergies/Meds Allergies & Medications Allergies No Known Allergies Allergy (Verified 08/12/25 13:37) Medication Reconciliation blood-glucose meter (Accu-Chek Guide Me Glucose Meter) #1 ea 12/24/24 [Rx Confirmed 08/12/25] dextromethorphan polistirex 30 mg/5 mL oral susp ext.release 12hr (Robitussin ER) 10 ml PO Q12H PRN cough #89 mL 12/31/24 [Rx Confirmed 08/12/25] fluconazole 200 mg tablet 400 mg (2 x 200 mg) PO QDAY Valley Fever 1 month #60 tabs 03/17/25 [Rx Confirmed 08/12/25] blood sugar diagnostic (Accu-Chek Guide test strips) #100 ea 04/12/25 [Rx Confirmed 08/12/25] blood-glucose sensor (FreeStyle Lisa 3 Plus Sensor device) #1 ea 04/12/25 [Rx Confirmed 08/12/25] lancets 30 gauge #100 ea 04/12/25 [Rx Confirmed 08/12/25] megestrol 800 mg/20 mL (20 mL) oral suspension 800 mg (20 mL) PO QDAY #20 mL 04/12/25 [Rx Confirmed 08/12/25] metformin 1,000 mg tablet 1,000 mg PO BID #60 tabs 04/12/25 [Rx Confirmed 08/12/25] atorvastatin 40 mg tablet (Lipitor) 40 mg PO QHS Hyperlipidemia 6 months #180 tabs 08/12/25 [Rx] insulin glargine 100 unit/mL (3 mL) subcutaneous pen (Lantus Solostar U-100 Insulin) 45 unit (0.45 mL) subcut QPM Diabetes Mellitus #15 mL 08/12/25 [Rx] pen needle, diabetic 32 gauge x 32 (1st Tier Unifine Pentips Plus) #100 ea 08/12/25 [Rx] semaglutide 3 mg tablet (Rybelsus) 7 mg (2.3333 x 3 mg) PO QDAY 1 month #70 tabs 08/12/25 [Rx] sulfamethoxazole 800 mg-trimethoprim 160 mg tablet 1 tab PO BID A43.0 Nocardiosis, pulmonary 1 month #60 tabs 08/12/25 [Rx] MA Intake Visit Data Collection New Patient or Established: Established Patient (seen at [facility] within 3 years) Pain scale:: 0 PCP or OBGYN visit in last 3 months: No Smoking Status Smoking Status: Never smoker Immunization / Flu Flu Vaccine in the Last 12 Months: No Flu Vaccine Exclusion Criteria: No Exclusion Criteria Past Medical History Past Medical History CARDIAC: Negative Congestive Heart Failure RESPIRATORY: Negative Chronic Obstructive Pulmonary Disease (COPD) GENITOURINARY: Negative Renal Disease ENDOCRINE: Negative Diabetes Mellitus Type 1 or Diabetes Mellitus Type 2 Social History SMOKING STATUS: Smoking status: Never smoker Patient Portal Questionaires PHQ-9 PHQ-2 Over the last 2 weeks, how often have you been bothered by any of the following problems? 1. Little interest or pleasure in doing things: not at all Social History Living Situation History Lives With: Family Tobacco History Smoking Status: Never smoker Review of Systems Report any current symptoms Only answer those that you have currently: Past Medical History Past Medical History Have you ever been diagnosed with any of the following: Cardiology Problems Congestive Heart Failure: No Respiratory Problems Chronic Obstructive Pulmonary Disease (COPD): No Genital/Urinary Problems Renal Disease: No Endocrine Problems Diabetes Mellitus Type 1: No Diabetes Mellitus Type 2: No History of Present Illness HPI Narrative 40-year-old male with past medical history of Diabetes Mellitus Type II, Insulin Dependent, hyperlipidemia, history of Valley Fever (completed fluconazole course), current treatment for latent TB-set to complete 9 month course, and 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 12/24/2024: Patient here today for follow-up for valley fever and uncontrolled diabetes, labs reviewed from the ED showing A1c of 13.8. Patient endorses not checking his sugars at home takes only metformin a 850 mg twice daily and glyburide 5 mg twice daily given to him from [place]. In addition patient also states having polyuria states going to the bathroom at least 10 times every night, likely in the setting of uncontrolled diabetes. Patient also complaining of loss of appetite and is requesting medications to help with appetite stimulation. He states improvement with cough however when he does cough still states having some mild pleuritic chest pain with inspiration and coughing. 12/31/24: Patient seen today for follow up visit. Patient states improvement in symptoms, however continues to have coughing spells that bother him. Coughing spells get so bad he sometimes spits some minimal blood. Patient adviced to continue taking his fluconazole for valley fever. Added some robitussin for cough. Blood sugar log was reviewed found with avg fasting BS around 270-300 currently on 10 units of insulin. Increased dose to 15 units and patient was adviced to titrate by 1 units until Fasting sugars are 150-170 range. Labs were ordered last week however still not in the [facility] Contact system. will follow up in 1 week. L 04/12/2025 patient came for follow-up visit. He reported that his symptoms have been improving when he does gets mild hemoptysis when he has a bad cough. 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 He was advised to continue his fluconazole for valley fever. He reported that he is only able to check his blood sugars during the morning time which was around 300-400 mg/dL on 18 units insulin. He denied any symptoms of chest pain, shortness of breath, dysuria or any other symptom. He was advised to increase his insulin 25 units and add up 2 units every day until his blood sugars are below 200 mg/dL in the morning with goal 150?170. He was additionally given prescription refill for Lantus, lancets, insulin needles and freestyle lisa 3 was sent as patient is currently using insulin for better management of blood sugar. He was also given megestrol prescription for appetite stimulation. CMP was ordered to evaluate for kidney functions as patient is currently taking metformin and urine microalbumin with creatinine was ordered to evaluate for proteinuria. Follow-up in a month. 05/13/2025: Patient continues to take all his medication as prescribed. Patient is currently following [facility]. Patient stated he was recently diagnosised with Tuberculosis and started of Pyridoxine 50 gm once daily and Rifampin 300 mg once daily, no RIPE treatment noted. No sputum culture on file. Patient likely being treated for latent TB given Rifampin but Pyridoxine (B6) also noted which would be in combination to Isoniazid. In addition to likely latent TB, [facility] sent positive Nocardia Culture results. Treatment for Nocardia would be Trimethoprim-Sulfamethoxazole. Holding off on treatment, need to follow up with [facility] recommendations to confirm latent TB and confirm Nocardia diagnosis. Although rare there can be cross-reactivity with positive Quantiferon TB Gold positive results. Although tested negative for HIV in Dec 2024, it is recommended that patient repeat HIV results. Continue Fluconazole for an additional month to complete 6 month course. Three diagnosis of Cocci, TB, and Nocardia would be unusual and needs further follow up with [facility]. May require ID specialist. Patient's diabetes continues to be elevated repeat A1c from 05/05/2025 noted A1c >15%. Patient brought in recorded fasting glucose at home, noted mid 300s to 400s. Currently taking 32 units of insulin glargine. 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 Increase insulin to 40 units Glargine HS. Rybelsus added, starting at 3 mg qday. Follow up with A1c. 1 month follow up. Follow up with [facility] on Friday. 07/22/2025: The patient presented for follow-up. He reported he has been following up with [facility] for his latent tuberculosis, coccidiomycosis and nocardia infection. However, he mentioned that, he is still had some hemoptysis. He denied any headache, nausea or vomiting, chest pain, SOB, abdominal pain, any changes in bowel or bladder habit, fever or chills, leg swelling. Labs were ordered for CBC, CMP, lipid panel, and urinalysis. Follow-up in 2 weeks. Recent labs done on 06/06/2025 revealed A1c of 15.2, and HIV test were negative. 08/12/2025: Patient continues is present to the office for 1 month follow-up from his diabetes mellitus. Previous visit, patient continued to have an A1c elevated greater than 15. Patient's fasting blood glucose high 200s postprandial glucose over 300. Patient continues to take Rybelsus 3 mg once daily, glargine 15 units at bedtime, and metformin 1000 twice daily. 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 Increased Glargine from 40 to 45 units. Increased Rybelsus 3 mg to 7 mg once daily. Renewed strips and needles. Patient completed treatment cocci pneumonia with fluconazole total course of 4 months. Follow-up with chest x-ray. Follow-up titers. Patient continues to follow-up with [facility] for latent TB, continue to treat for total of 9 months. [place] following. New diagnosis of Nocardia pneumonia as noted on sputum cultures and previous office visit. Patient started on Bactrim 800-160 milligrams twice daily to complete a total of least 3 months starting from 08/12/2025 to November 12, 2009. Infectious Disease Referral sent. Next Visit: A1c and CMP follow as patient is on several antibiotics via [facility] Review of Systems Review of Systems Narrative Review of Systems: General appearance: NO weight change, NO fatigue, NO weakness, NO fever, NO chills, NO night sweats, No cough Skin: NO rash, NO itching, NO sores, NO moles HEENT: NO Trauma, NO nausea, NO vomiting, NO visual changes, NO blurry vision, NO double vision, NO tinnitus, NO vertigo, NO ear discharge, NO rhinorrhea, NO stuffiness, NO sneezing, NO allergy, NO epistaxis. NO Hoarseness, NO sore throat, NO swollen neck. Cardiac: NO Palpitations, NO dyspnea on exertion, NO orthopnea, NO paroxysmal nocturnal dyspnea, NO edema Respiratory: NO Shortness of Breath, NO Wheezing, NO Cough, NO Sputum, NO hemoptysis GI:NO appetite, NO nausea, NO vomiting, NO dysphagia, NO changes in bowel frequency, NO stool color, NO diarrhea, NO constipation, NO hemetemesis, NO hemorrhoids, NO melena, NO hematechezia, NO abdominal pain, NO jaundice Renal: NO frequency, NO hesitancy, NO urgency, NO hematuria, NO nocturia, NO incontinence MSK: NO muscle weakness, NO gout, NO arthritis, NO muscle stiffness Neuro: NO headaches, NO tremors, NO weakness, NO paralysis, NO seizures, NO loss of consciousness, NO numbness. Hem: NO anemia, NO easy bruising/bleeding, NO petechiae, NO purpura Endo: NO heat/cold intolerance, NO excessive sweating, NO polyuria, NO polydipsia, NO polyphagia, NO thyroid problems, YES diabetes Pysch: NO mood, NO anxiety, NO depression Objective/Exam Narrative Physical exam: Vitals: General Appearance: Alert and Orientated x3, well-nourished male who is sitting on exam room Thorax/Lungs: Symmetrical with good expansion. Chest and back non-tender. Lungs resonant to percussion. Breath sounds vesicular without crackles, wheezes, or rhonchi Cardiovascular/Peripheral Vascular: No jugular venous distention noted. S1 and S2 heart sounds regular, no murmurs or extra heart sounds auscultated. No peripheral edema noted. Abdomen: Bowel sounds are active. No tenderness to deep or light palpation. Assessment & Plan Diagnosis / Problem List (1) Diabetes mellitus, type II, insulin dependent: Status: Acute Assessment & Plan: Patient has uncontrolled diabetes mellitus type II insulin dependent. Has not been able to monitor his blood sugar recently because of busy schedule. Patient also continues to take metfomrin 1000 mg BID. 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 Patient was prescribed Rybelsus, but has not refilled it. Labs revealed A1c on 06/06/2025 was 15.2. Plan: -Monitor fasting blood sugar daily at home, and maintain a log -Glargine increased to 45 units HS -Rybelusus 7 mg qday -Continue Metformin 1000BID -Follow up visit in 2 month follow - Will consider ARIN inhibitor or ARB after kidney function is evaluated (holding off as soft BP) (2) Tuberculosis: Status: Acute Assessment & Plan: Concerning diagnosis of Tuberculosis. This is likely Latent TB as patient was not started on RIPE treatment. Patient only has positive Quantiferon Gold (12/28/2024) results. No sputum culture on file. Plan: -Continue Rifampin 50 units and Pyridoxine (B6), ?unclear if Isoniazid onboard --->to complete 9 month course with [facility]. - Following up with [facility] office, and was told to be noninfectious at this point (3) Nocardial pneumonia: Status: Acute Assessment & Plan: Positive cultures for Nocardia from [facility]. Given diagnosis of cocci and new diagnosis of TB, will hold off starting Trimethoprim-Sulfamethoxazole. Reach out to [facility] to determine cross reactivity, as three pulmonary disease would be concerning for HIV or immuno-deficiency. Plan: -Start Bactrim, started on 08/12/2025 to 11/12/2025. -Follow up with [facility] given suspicious results, tried calling on 08/12/2025- will call again on Friday (4) Coccidioidomycosis: Status: Acute Assessment & Plan: Total 6 months of fluconazole was given, patient completed course of Fluconazole. Plan: -Follow up on chest x-ray to access cocci resolution -Follu on Cocci titers (5) Anorexia: Status: Acute Assessment & Plan: Patient has had recent weight loss greater than 20 lbs. Patient has been diagnosed with Cocci/Valley Fever, recently started on TB treatment, and possible positive for Nocardia given report from [facility]. REPEAT HIV test given concern for 3 different pulmonary infections, previous HIV test negative. Plan: -Lab oumar, repeat HIV test was negative, likely weight loss and multiple infections are due to immunocompromise state secondary to uncontrolled diabetes mellitus Plan - The patient's plan was discussed with attending MD Magdalena Villarreal MD PGY2 Internal Medicine Orders: Orders XR chest 1V Today Referrals Infectious Disease A43.0 - Pulmonary nocardiosis, B38.9 - Coccidioidomycosis, unspecified, Z22.7 - Latent tuberculosis Office Procedures [facility] Level of Care Nursing/Assessment Patient Status: Established Patient Nursing Assessment/Reassessment: Medication Reconciliation, Update PMH in EMR and Vital Signs Coordination of Care: Complex Care and Chronic Disease 1-5, Education Complex Pt/Fam, Lab and Imaging orders, Results/Orders obtained and Staff clarify orders Established Patient Charge Established Patient Point Assignment: 105 Established Patient Point Charge: EP Level 3 (80-115)
[2025-08-12 13:35] VITALS: BP 105/69; PULSE 94; RESP 18; TEMP 35.9; O2SAT 96
== END 2025-08-12 14:11 | disposition home or self-care (01) ==
LOC: HODAHC 13:03
PROVIDERS: Supervising Provider Internal Medicine
DX: E11.9 Type 2 diabetes mellitus without complications (principal); Z79.4 Long term (current) use of insulin; Z79.84 Long term (current) use of oral hypoglycemic drugs; B38.9 Coccidioidomycosis, unspecified; R63.0 Anorexia; Z22.7 Latent tuberculosis; A43.0 Pulmonary nocardiosis
CPT/HCPCS: 99213; G0463

== ENCOUNTER → 2025-08-12 | Outpatient (CLI) | payer MEDICAID, SELFPAY ==
--- NOTE | 2025-08-12 | XR_ITS ---
EXAMINATION: PA chest single view TECHNIQUE: Upright PA chest single view Date and time: August 12, 2025, 1517 hours, comparison December 21, 2024 INDICATIONS: Diagnosis pulmonary coccidioidomycosis FINDINGS: Improvement in right upper lobe pneumonia with significant residual Almost complete clearing left lung pneumonia. Normal heart size IMPRESSION: Improvement in right upper lobe pneumonia with significant residual Almost complete clearing left lung pneumonia
== END | disposition home or self-care (01) ==
DX: J18.9 Pneumonia, unspecified organism (principal); B38.1 Chronic pulmonary coccidioidomycosis
CPT/HCPCS: 71045

== ENCOUNTER 2025-09-14 13:16 | Outpatient (AMB) | payer MEDICAID, SELFPAY ==
[2025-09-14 13:32] VITALS: BP 105/68; PULSE 78; RESP 18; TEMP 36.5; O2SAT 97
--- NOTE | 2025-09-14 13:32 | PD.RESCLINIC ---
Vital Signs 09/14/25 13:32 Height 58 m Height Method Stated Weight 55.055 kg Weight Measurement Method Standing Scale BMI 0.0 BP 105/68 Blood Pressure Source Automatic Cuff Blood Pressure Location Right Upper Arm Position Sitting Respiration 18 Pulse 78 Pulse Source Monitor Temp 97.7 F Temp Source Temporal Artery Scan Pulse Oximetry (%) 97 Oxygen Delivery Method Room Air Allergies/Meds Allergies & Medications Allergies No Known Allergies Allergy (Verified 09/14/25 13:34) Medication Reconciliation blood-glucose meter (Accu-Chek Guide Me Glucose Meter) #1 ea 12/24/24 [Rx Confirmed 09/14/25] dextromethorphan polistirex 30 mg/5 mL oral susp ext.release 12hr (Robitussin ER) 10 ml PO Q12H PRN cough #89 mL 12/31/24 [Rx Confirmed 09/14/25] fluconazole 200 mg tablet 400 mg (2 x 200 mg) PO QDAY Valley Fever 1 month #60 tabs 03/17/25 [Rx Confirmed 09/14/25] blood sugar diagnostic (Accu-Chek Guide test strips) #100 ea 04/12/25 [Rx Confirmed 09/14/25] blood-glucose sensor (FreeStyle Lisa 3 Plus Sensor device) #1 ea 04/12/25 [Rx Confirmed 09/14/25] lancets 30 gauge #100 ea 04/12/25 [Rx Confirmed 09/14/25] megestrol 800 mg/20 mL (20 mL) oral suspension 800 mg (20 mL) PO QDAY #20 mL 04/12/25 [Rx Confirmed 09/14/25] metformin 1,000 mg tablet 1,000 mg PO BID #60 tabs 04/12/25 [Rx Confirmed 09/14/25] atorvastatin 40 mg tablet (Lipitor) 40 mg PO QHS Hyperlipidemia 6 months #180 tabs 08/12/25 [Rx Confirmed 09/14/25] pen needle, diabetic 32 gauge x 32 (1st Tier Unifine Pentips Plus) #100 ea 08/12/25 [Rx Confirmed 09/14/25] semaglutide 3 mg tablet (Rybelsus) 7 mg (2.3333 x 3 mg) PO QDAY 1 month #70 tabs 08/12/25 [Rx Confirmed 09/14/25] sulfamethoxazole 800 mg-trimethoprim 160 mg tablet 1 tab PO BID A43.0 Nocardiosis, pulmonary 1 month #60 tabs 08/12/25 [Rx Confirmed 09/14/25] empagliflozin 10 mg tablet (Jardiance) 10 mg PO QAM #30 tabs 09/14/25 [Rx] insulin glargine 100 unit/mL (3 mL) subcutaneous pen (Lantus Solostar U-100 Insulin) 45 unit (0.45 mL) subcut QPM Diabetes Mellitus #15 mL 09/14/25 [Rx] MA Intake Visit Data Collection New Patient or Established: Established Patient (seen at [facility] [place] within 3 years) Seen by Clinical Staff ONLY (RN/MA): No Pain Present Currently: No Pain scale:: 0 Pain Scale Used: Monge[employer] Hugo/[employer] Sales Manager Required: Yes PCP or OBGYN visit in last 3 months: Yes Do You Feel Safe at Home: Yes Authorities Contacted: N/A Smoking Status Smoking Status: Never smoker Immunization / Flu Flu Vaccine in the Last 12 Months: No Flu Vaccine Exclusion Criteria: No Exclusion Criteria Past Medical History Past Medical History CARDIAC: Negative Congestive Heart Failure RESPIRATORY: Negative Chronic Obstructive Pulmonary Disease (COPD) GENITOURINARY: Negative Renal Disease ENDOCRINE: Negative Diabetes Mellitus Type 1 or Diabetes Mellitus Type 2 Social History SMOKING STATUS: Smoking status: Never smoker Patient Portal Questionaires PHQ-9 PHQ-2 Over the last 2 weeks, how often have you been bothered by any of the following problems? 1. Little interest or pleasure in doing things: not at all Social History Living Situation History Lives With: Family Tobacco History Smoking Status: Never smoker Domestic Abuse History Do You Feel Safe at Home: Yes Review of Systems Report any current symptoms Only answer those that you have currently: Past Medical History Past Medical History Have you ever been diagnosed with any of the following: Cardiology Problems Congestive Heart Failure: No Respiratory Problems Chronic Obstructive Pulmonary Disease (COPD): No Genital/Urinary Problems Renal Disease: No Endocrine Problems Diabetes Mellitus Type 1: No Diabetes Mellitus Type 2: No History of Present Illness HPI Narrative 40-year-old male with past medical history of Diabetes Mellitus Type II, Insulin Dependent, hyperlipidemia, history of Valley Fever (completed fluconazole course), current treatment for latent TB-set to complete 9 month course, and 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 12/24/2024: Patient here today for follow-up for valley fever and uncontrolled diabetes, labs reviewed from the ED showing A1c of 13.8. Patient endorses not checking his sugars at home takes only metformin a 850 mg twice daily and glyburide 5 mg twice daily given to him from [facility]. In addition patient also states having polyuria states going to the bathroom at least 10 times every night, likely in the setting of uncontrolled diabetes. Patient also complaining of loss of appetite and is requesting medications to help with appetite stimulation. He states improvement with cough however when he does cough still states having some mild pleuritic chest pain with inspiration and coughing. 12/31/24: Patient seen today for follow up visit. Patient states improvement in symptoms, however continues to have coughing spells that bother him. Coughing spells get so bad he sometimes spits some minimal blood. Patient adviced to continue taking his fluconazole for valley fever. Added some robitussin for cough. Blood sugar log was reviewed found with avg fasting BS around 270-300 currently on 10 units of insulin. Increased dose to 15 units and patient was adviced to titrate by 1 units until Fasting sugars are 150-170 range. Labs were ordered last week however still not in the [facility] system. will follow up in 1 week. L 04/12/2025 patient came for follow-up visit. He reported that his symptoms have been improving when he does gets mild hemoptysis when he has a bad cough. 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 He was advised to continue his fluconazole for valley fever. He reported that he is only able to check his blood sugars during the morning time which was around 300-400 mg/dL on 18 units insulin. He denied any symptoms of chest pain, shortness of breath, dysuria or any other symptom. He was advised to increase his insulin 25 units and add up 2 units every day until his blood sugars are below 200 mg/dL in the morning with goal 150?170. He was additionally given prescription refill for Lantus, lancets, insulin needles and freestyle lisa 3 was sent as patient is currently using insulin for better management of blood sugar. He was also given megestrol prescription for appetite stimulation. CMP was ordered to evaluate for kidney functions as patient is currently taking metformin and urine microalbumin with creatinine was ordered to evaluate for proteinuria. Follow-up in a month. 05/13/2025: Patient continues to take all his medication as prescribed. Patient is currently following [facility]. Patient stated he was recently diagnosised with Tuberculosis and started of Pyridoxine 50 gm once daily and Rifampin 300 mg once daily, no RIPE treatment noted. No sputum culture on file. Patient likely being treated for latent TB given Rifampin but Pyridoxine (B6) also noted which would be in combination to Isoniazid. In addition to likely latent TB, [facility] sent positive Nocardia Culture results. Treatment for Nocardia would be Trimethoprim-Sulfamethoxazole. Holding off on treatment, need to follow up with [facility] recommendations to confirm latent TB and confirm Nocardia diagnosis. Although rare there can be cross-reactivity with positive Quantiferon TB Gold positive results. Although tested negative for HIV in Dec 2024, it is recommended that patient repeat HIV results. Continue Fluconazole for an additional month to complete 6 month course. Three diagnosis of Cocci, TB, and Nocardia would be unusual and needs further follow up with [facility]. May require ID specialist. Patient's diabetes continues to be elevated repeat A1c from 05/05/2025 noted A1c >15%. Patient brought in recorded fasting glucose at home, noted mid 300s to 400s. Currently taking 32 units of insulin glargine. 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 Increase insulin to 40 units Glargine HS. Rybelsus added, starting at 3 mg qday. Follow up with A1c. 1 month follow up. Follow up with [facility] on Friday. 07/22/2025: The patient presented for follow-up. He reported he has been following up with [facility] for his latent tuberculosis, coccidiomycosis and nocardia infection. However, he mentioned that, he is still had some hemoptysis. He denied any headache, nausea or vomiting, chest pain, SOB, abdominal pain, any changes in bowel or bladder habit, fever or chills, leg swelling. Labs were ordered for CBC, CMP, lipid panel, and urinalysis. Follow-up in 2 weeks. Recent labs done on 06/06/2025 revealed A1c of 15.2, and HIV test were negative. 08/12/2025: Patient continues is present to the office for 1 month follow-up from his diabetes mellitus. Previous visit, patient continued to have an A1c elevated greater than 15. Patient's fasting blood glucose high 200s postprandial glucose over 300. Patient continues to take Rybelsus 3 mg once daily, glargine 15 units at bedtime, and metformin 1000 twice daily. 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 Increased Glargine from 40 to 45 units. Increased Rybelsus 3 mg to 7 mg once daily. Renewed strips and needles. Patient completed treatment cocci pneumonia with fluconazole total course of 4 months. Follow-up with chest x-ray. Follow-up titers. Patient continues to follow-up with [facility] for latent TB, continue to treat for total of 9 months. County following. New diagnosis of Nocardia pneumonia as noted on sputum cultures and previous office visit. Patient started on Bactrim 800-160 milligrams twice daily to complete a total of least 3 months starting from 08/12/2025 to November 12, 2009. Infectious Disease Referral sent. Next Visit: A1c and CMP follow as patient is on several antibiotics via [facility] 09/14/2025: Patient here for the lab f/u that was collected on 08/17/2025. HbA1c is 12.2, and Glucose level 309. (On 06/06/2025: HbA1c: 12.2 and glucose:449). The levels improved but still remains high. Patient noted that he uses 30units of insulin glargine. Advised him to take 35 units of glargine at night in addition to all other medication he has been taking. Jardiance 10mg po qd has been added. Ordered CMP and HbA1c. Follow up in 5 weeks. Of note, Coccidioides Ab, IgG EIA was 0.3 (negative) and Coccidioides AB, IgM, EIA was 1.2 (indeterminate) Assessment and plan discussed with my attending physician Dr. Cornell Boykin (PGY-1) - Internal medicine resident Review of Systems Review of Systems Narrative Review of Systems: All 12 systems assessed and the patient denies unless otherwise stated in HPI Objective/Exam Narrative Physical exam: General: No acute distress, well nourished, AAO x3 Eye: Normal conjunctiva, no scleral icterus HENT: Normocephalic, atraumatic, hearing intact to conversation at normal volume, moist oral mucosa Neck: Supple, non-tender, no JVD, no lymphadenopathy Lungs: Non-labored respirations, symmetric chest rise, Clear to auscultate bilaterally, No wheezing, rhonchi, crackles Heart: Peripheral pulses intact bilaterally, Regular Rate and Rhythm. Abdomen: Soft, non-tender, non-distended, no palpable masses Musculoskeletal: Normal range of motion and strength, No cyanosis or edema, No visible joint swelling Skin: Skin is warm, dry, no rashes or lesions. Psychiatric: Cooperative, appropriate mood and affect, Awake and alert, not agitated Neuro: Cranial nerves II-XII grossly intact. Strength 5/5 throughout. Sensations intact to light touch. Assessment & Plan Diagnosis / Problem List (1) Diabetes mellitus, type II, insulin dependent: Status: Acute Assessment & Plan: Patient here for the lab f/u. HbA1c is 12.2, and Glucose level 309. (On 06/06/2025: HbA1c: 12.2 and glucose:449). The levels improved but still remains high. Patient noted that he uses 30units of insulin glargine. Advised him to take 35 units of glargine at night in addition to all other medication he has been taking. Jardiance 10mg po qd has been added. Ordered CMP and HbA1c. Follow up in 5 weeks. Office Procedures [facility] Level of Care Nursing/Assessment Patient Status: Established Patient Nursing Assessment/Reassessment: Medication Reconciliation, Update PMH in EMR and Vital Signs Coordination of Care: Complex Care and Chronic Disease 1-5, Complex Care/Chronic Disease 5 or more, Education Complex Pt/Fam, Consent,records obtained, informed consent, Lab and Imaging orders, Results/Orders obtained and Staff clarify orders Established Patient Charge Established Patient Point Assignment: 145 Established Patient Point Charge: Level 4 (120-155)
== END 2025-09-14 14:43 | disposition home or self-care (01) ==
LOC: HODAHC 13:16
PROVIDERS: Supervising Provider Internal Medicine
DX: E11.9 Type 2 diabetes mellitus without complications (principal); Z79.4 Long term (current) use of insulin; Z79.84 Long term (current) use of oral hypoglycemic drugs
CPT/HCPCS: 99214; G0463

== ENCOUNTER 2025-10-21 13:11 | Outpatient (AMB) | payer MEDICAID, SELFPAY ==
[2025-10-21 13:22] VITALS: BP 124/85; PULSE 87; RESP 16; TEMP 36.6; O2SAT 98
--- NOTE | 2025-10-21 13:22 | PD.RESCLINIC ---
Vital Signs 10/21/25 13:22 Height 58 m Height Method Stated Weight 58.684 kg Weight Measurement Method Standing Scale BMI 0.0 BP 124/85 H Blood Pressure Source Automatic Cuff Blood Pressure Location Right Upper Arm Position Sitting Respiration 16 Pulse 87 Pulse Source Monitor Temp 97.8 F Temp Source Temporal Artery Scan Pulse Oximetry (%) 98 Oxygen Delivery Method Room Air Allergies/Meds Allergies & Medications Allergies No Known Allergies Allergy (Verified 10/21/25 13:24) Medication Reconciliation blood-glucose meter (Accu-Chek Guide Me Glucose Meter) #1 ea 12/24/24 [Rx Confirmed 10/21/25] dextromethorphan polistirex 30 mg/5 mL oral susp ext.release 12hr (Robitussin ER) 10 ml PO Q12H PRN cough #89 mL 12/31/24 [Rx Confirmed 10/21/25] fluconazole 200 mg tablet 400 mg (2 x 200 mg) PO QDAY Valley Fever 1 month #60 tabs 03/17/25 [Rx Confirmed 10/21/25] blood sugar diagnostic (Accu-Chek Guide test strips) #100 ea 04/12/25 [Rx Confirmed 10/21/25] megestrol 800 mg/20 mL (20 mL) oral suspension 800 mg (20 mL) PO QDAY #20 mL 04/12/25 [Rx Confirmed 10/21/25] metformin 1,000 mg tablet 1,000 mg PO BID #60 tabs 04/12/25 [Rx Confirmed 10/21/25] atorvastatin 40 mg tablet (Lipitor) 40 mg PO QHS Hyperlipidemia 6 months #180 tabs 08/12/25 [Rx Confirmed 10/21/25] pen needle, diabetic 32 gauge x 5/32 (1st Tier Unifine Pentips Plus) #100 ea 08/12/25 [Rx Confirmed 10/21/25] semaglutide 3 mg tablet (Rybelsus) 7 mg (2.3333 x 3 mg) PO QDAY 1 month #70 tabs 08/12/25 [Rx Confirmed 10/21/25] sulfamethoxazole 800 mg-trimethoprim 160 mg tablet 1 tab PO BID A43.0 Nocardiosis, pulmonary 1 month #60 tabs 08/12/25 [Rx Confirmed 10/21/25] insulin glargine 100 unit/mL (3 mL) subcutaneous pen (Lantus Solostar U-100 Insulin) 45 unit (0.45 mL) subcut QPM Diabetes Mellitus #15 mL 09/14/25 [Rx Confirmed 10/21/25] blood-glucose sensor (FreeStyle Lisa 3 Plus Sensor device) #1 ea 10/21/25 [Rx] blood-glucose,psychiatric nurse practitioner,cont (FreeStyle Lisa 3 [place]) #1 ea 10/21/25 [Rx] empagliflozin 25 mg tablet (Jardiance) 25 mg PO QAM 1 month #30 tabs 10/21/25 [Rx] insulin glargine 100 unit/mL (3 mL) subcutaneous pen (Lantus Solostar U-100 Insulin) 50 unit (0.5 mL) subcut QPM #15 mL 10/21/25 [Rx] MA Intake Visit Data Collection New Patient or Established: Established Patient (seen at [facility] within 3 years) Seen by Clinical Staff ONLY (RN/MA): No Pain Present Currently: No Pain scale:: 0 Pain Scale Used: Monge-Bauman/Numerical Vending Machine Attendant Required: No PCP or OBGYN visit in last 3 months: Yes Do You Feel Safe at Home: Yes Authorities Contacted: N/A Smoking Status Smoking Status: Never smoker Immunization / Flu Flu Vaccine in the Last 12 Months: No Flu Vaccine Exclusion Criteria: No Exclusion Criteria Past Medical History Past Medical History CARDIAC: Negative Congestive Heart Failure RESPIRATORY: Negative Chronic Obstructive Pulmonary Disease (COPD) GENITOURINARY: Negative Renal Disease ENDOCRINE: Negative Diabetes Mellitus Type 1 or Diabetes Mellitus Type 2 Social History SMOKING STATUS: Smoking status: Never smoker Patient Portal Questionaires PHQ-9 PHQ-2 Over the last 2 weeks, how often have you been bothered by any of the following problems? 1. Little interest or pleasure in doing things: not at all Social History Living Situation History Lives With: Family Tobacco History Smoking Status: Never smoker Domestic Abuse History Do You Feel Safe at Home: Yes Review of Systems Report any current symptoms Only answer those that you have currently: Past Medical History Past Medical History Have you ever been diagnosed with any of the following: Cardiology Problems Congestive Heart Failure: No Respiratory Problems Chronic Obstructive Pulmonary Disease (COPD): No Genital/Urinary Problems Renal Disease: No Endocrine Problems Diabetes Mellitus Type 1: No Diabetes Mellitus Type 2: No History of Present Illness HPI Narrative 40-year-old male with past medical history of Diabetes Mellitus Type II, Insulin Dependent, hyperlipidemia, history of Valley Fever (completed fluconazole course), current treatment for latent TB-set to complete 9 month course, and 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 12/24/2024: Patient here today for follow-up for valley fever and uncontrolled diabetes, labs reviewed from the ED showing A1c of 13.8. Patient endorses not checking his sugars at home takes only metformin a 850 mg twice daily and glyburide 5 mg twice daily given to him from [place]. In addition patient also states having polyuria states going to the bathroom at least 10 times every night, likely in the setting of uncontrolled diabetes. Patient also complaining of loss of appetite and is requesting medications to help with appetite stimulation. He states improvement with cough however when he does cough still states having some mild pleuritic chest pain with inspiration and coughing. 12/31/24: Patient seen today for follow up visit. Patient states improvement in symptoms, however continues to have coughing spells that bother him. Coughing spells get so bad he sometimes spits some minimal blood. Patient adviced to continue taking his fluconazole for valley fever. Added some robitussin for cough. Blood sugar log was reviewed found with avg fasting BS around 270-300 currently on 10 units of insulin. Increased dose to 15 units and patient was adviced to titrate by 1 units until Fasting sugars are 150-170 range. Labs were ordered last week however still not in the [facility] system. will follow up in 1 week. L 04/12/2025 patient came for follow-up visit. He reported that his symptoms have been improving when he does gets mild hemoptysis when he has a bad cough. 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 He was advised to continue his fluconazole for valley fever. He reported that he is only able to check his blood sugars during the morning time which was around 300-400 mg/dL on 18 units insulin. He denied any symptoms of chest pain, shortness of breath, dysuria or any other symptom. He was advised to increase his insulin 25 units and add up 2 units every day until his blood sugars are below 200 mg/dL in the morning with goal 150?170. He was additionally given prescription refill for Lantus, lancets, insulin needles and freestyle lisa 3 was sent as patient is currently using insulin for better management of blood sugar. He was also given megestrol prescription for appetite stimulation. CMP was ordered to evaluate for kidney functions as patient is currently taking metformin and urine microalbumin with creatinine was ordered to evaluate for proteinuria. Follow-up in a month. 05/13/2025: Patient continues to take all his medication as prescribed. Patient is currently following [facility]. Patient stated he was recently diagnosised with Tuberculosis and started of Pyridoxine 50 gm once daily and Rifampin 300 mg once daily, no RIPE treatment noted. No sputum culture on file. Patient likely being treated for latent TB given Rifampin but Pyridoxine (B6) also noted which would be in combination to Isoniazid. In addition to likely latent TB, [facility] sent positive Nocardia Culture results. Treatment for Nocardia would be Trimethoprim-Sulfamethoxazole. Holding off on treatment, need to follow up with [facility] recommendations to confirm latent TB and confirm Nocardia diagnosis. Although rare there can be cross-reactivity with positive Quantiferon TB Gold positive results. Although tested negative for HIV in Dec 2024, it is recommended that patient repeat HIV results. Continue Fluconazole for an additional month to complete 6 month course. Three diagnosis of Cocci, TB, and Nocardia would be unusual and needs further follow up with [facility]. May require ID specialist. Patient's diabetes continues to be elevated repeat A1c from 05/05/2025 noted A1c >15%. Patient brought in recorded fasting glucose at home, noted mid 300s to 400s. Currently taking 32 units of insulin glargine. 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 Increase insulin to 40 units Glargine HS. Rybelsus added, starting at 3 mg qday. Follow up with A1c. 1 month follow up. Follow up with [facility] on Friday. 07/22/2025: The patient presented for follow-up. He reported he has been following up with [facility] for his latent tuberculosis, coccidiomycosis and nocardia infection. However, he mentioned that, he is still had some hemoptysis. He denied any headache, nausea or vomiting, chest pain, SOB, abdominal pain, any changes in bowel or bladder habit, fever or chills, leg swelling. Labs were ordered for CBC, CMP, lipid panel, and urinalysis. Follow-up in 2 weeks. Recent labs done on 06/06/2025 revealed A1c of 15.2, and HIV test were negative. 08/12/2025: Patient continues is present to the office for 1 month follow-up from his diabetes mellitus. Previous visit, patient continued to have an A1c elevated greater than 15. Patient's fasting blood glucose high 200s postprandial glucose over 300. Patient continues to take Rybelsus 3 mg once daily, glargine 15 units at bedtime, and metformin 1000 twice daily. 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 Increased Glargine from 40 to 45 units. Increased Rybelsus 3 mg to 7 mg once daily. Renewed strips and needles. Patient completed treatment cocci pneumonia with fluconazole total course of 4 months. Follow-up with chest x-ray. Follow-up titers. Patient continues to follow-up with [facility] for latent TB, continue to treat for total of 9 months. County following. New diagnosis of Nocardia pneumonia as noted on sputum cultures and previous office visit. Patient started on Bactrim 800-160 milligrams twice daily to complete a total of least 3 months starting from 08/12/2025 to November 12, 2009. Infectious Disease Referral sent. Next Visit: A1c and CMP follow as patient is on several antibiotics via [facility] 09/14/2025: Patient here for the lab f/u that was collected on 08/17/2025. HbA1c is 12.2, and Glucose level 309. (On 06/06/2025: HbA1c: 12.2 and glucose:449). The levels improved but still remains high. Patient noted that he uses 30units of insulin glargine. Advised him to take 35 units of glargine at night in addition to all other medication he has been taking. Jardiance 10mg po qd has been added. Ordered CMP and HbA1c. Follow up in 5 weeks. Of note, Coccidioides Ab, IgG EIA was 0.3 (negative) and Coccidioides AB, IgM, EIA was 1.2 (indeterminate) 10/21/2025: Patient presents for follow up on labs. Also requesting repeat CXR to document progression of TB treatment. Patient reports hemoptysis and wheezing x6 months, unchanged. Home blood sugar readings 200-300. Increased glargine to 50 units daily, Jardiance to 25 units daily. Ordered Freestyle Lisa sensor, CXR. Follow up in one month. Assessment and plan discussed with my attending physician Dr. Cornell Price MD PGY-2 Review of Systems Review of Systems Narrative Review of Systems: All 12 systems assessed and the patient denies unless otherwise stated in HPI Objective/Exam Narrative Physical exam: General: No acute distress, well nourished, AAO x3 Eye: Normal conjunctiva, no scleral icterus HENT: Normocephalic, atraumatic, hearing intact to conversation at normal volume, moist oral mucosa Neck: Supple, non-tender, no JVD, no lymphadenopathy Lungs: Non-labored respirations, symmetric chest rise, Clear to auscultate bilaterally, No wheezing, rhonchi, crackles Heart: Peripheral pulses intact bilaterally, Regular Rate and Rhythm. Abdomen: Soft, non-tender, non-distended, no palpable masses Musculoskeletal: Normal range of motion and strength, No cyanosis or edema, No visible joint swelling Skin: Skin is warm, dry, no rashes or lesions. Psychiatric: Cooperative, appropriate mood and affect, Awake and alert, not agitated Neuro: Cranial nerves II-XII grossly intact. Strength 5/5 throughout. Sensations intact to light touch. Assessment & Plan Diagnosis / Problem List (1) Diabetes mellitus, type II, insulin dependent: Status: Acute Assessment & Plan: Patient has uncontrolled diabetes mellitus type II insulin dependent. . 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 Patient was prescribed Rybelsus, but has not refilled it. Labs revealed A1c on remains elevated 12% as of 10/10/25. Plan: -Monitor fasting blood sugar daily at home, and maintain a log -Glargine increased to 50 units HS -Rybelusus 7 mg qday -Jardiance increased to 25 mg daily -Continue Metformin 1000BID -Follow up visit in 1 month follow (2) Tuberculosis: Status: Acute Assessment & Plan: Concerning diagnosis of Tuberculosis. This is likely Latent TB as patient was not started on RIPE treatment. Patient only has positive Quantiferon Gold (12/28/2024) results. No sputum culture on file. Plan: -Continue Rifampin 50 units and Pyridoxine (B6), ?unclear if Isoniazid onboard --->to complete 9 month course with county. - Following up with [facility] office, and was told to be noninfectious at this point -CXR ordered to document progression of TB Plan The patient's plan was discussed with attending MD Kenny Villarreal MD PGY-2 Orders: Orders XR chest 1V Today Office Procedures [facility] Level of Care Nursing/Assessment Patient Status: Established Patient Nursing Assessment/Reassessment: Medication Reconciliation, Update PMH in EMR and Vital Signs Coordination of Care: Complex Care and Chronic Disease 1-5, Education Complex Pt/Fam, Consent,records obtained, informed consent, Lab and Imaging orders, Results/Orders obtained and Staff clarify orders Established Patient Charge Established Patient Point Assignment: 110 Established Patient Point Charge: EP Level 3 (80-115)
== END 2025-10-21 14:02 | disposition home or self-care (01) ==
LOC: HODAHC 13:11
PROVIDERS: Supervising Provider Internal Medicine
DX: A15.9 Respiratory tuberculosis unspecified (principal); E11.9 Type 2 diabetes mellitus without complications; Z79.4 Long term (current) use of insulin
CPT/HCPCS: 99213; G0463

== ENCOUNTER → 2025-10-21 | Outpatient (CLI) | payer MEDICAID, SELFPAY ==
--- NOTE | 2025-10-21 14:25 | XR_ITS ---
EXAMINATION: PA chest single view TECHNIQUE: Upright PA chest single view Date and time: October 21, 2025 1439 hours, comparison August 12, 2025 INDICATIONS: Diagnosis tach tuberculosis. FINDINGS: Again noted extensive nodular infiltrate in the right upper lobe Normal heart size Left lung clear IMPRESSION: Again noted extensive nodular infiltrate in the right upper lobe
== END | disposition home or self-care (01) ==
LOC: CDIM 14:17
DX: R91.8 Other nonspecific abnormal finding of lung field (principal)
CPT/HCPCS: 71045